=== PATIENT | female | born 1945 | race Caucasian/White ===

== ENCOUNTER 2017-04-01 21:05 | Emergency (ER) | payer OTHER ==
[2017-04-01 21:43] VITALS: TEMP 98.4; BMI 21.5
--- NOTE | 2017-04-01 22:01 | PDOC ---
History of Present Illness - General History Source: Patient Exam Limitations: No Limitations - History of Present Illness Initial Comments: 04/01/17 22:25 The patient is a 72 year old female with unclear significant PMH who presents to the emergency department with RLQ abdominal pain beginning approximately this morning. The patient describes the abdominal pain as radiating superiorly with associated nausea. She notes that her abdominal pain is aggravated by walking, to the point where she feels pain upon placing her feet on the ground after rising out of bed. The patient also complains of recent anorexia. The patient denies chest pain, shortness of breath, headache and dizziness. Denies fever, chills, vomit, diarrhea and constipation. Denies dysuria, frequency, urgency and hematuria. Allergies: NKDA Social history: No reported toxic habits. PCP: Dr. Rose <Blake Abdullahi - Last Filed: 04/01/17 22:26> - General History Source: Patient <Man Figueroa - Last Filed: 04/02/17 02:48> - General Chief Complaint: Pain Stated Complaint: PAIN Time Seen by Provider: 04/01/17 21:53 Past History <Blake Abdullahi - Last Filed: 04/01/17 22:26> - Past Medical History Anemia: No Asthma: No Cancer: No Cardiac Disorders: No CVA: No COPD: No CHF: No Dementia: No Diabetes: No GI Disorders: Yes (GERD) Disorders: No HTN: Yes Hypercholesterolemia: Yes (STOPPED MEDICATION 03/16/16) Liver Disease: No Seizures: No Thyroid Disease: No - Surgical History Abdominal Surgery: No Appendectomy: No Cardiac Surgery: No Cholecystectomy: No Lung Surgery: No Neurologic Surgery: No Orthopedic Surgery: No - Suicide/Smoking/Psychosocial Hx Smoking History: Never smoked Hx Alcohol Use: No Drug/Substance Use Hx: No Substance Use Type: None Hx Substance Use Treatment: No <Man Figueroa - Last Filed: 04/02/17 02:48> - Past Medical History Allergies/Adverse Reactions: Allergies Allergy/AdvReac Type Severity Reaction Status Date / Time No Known Drug Allergies Allergy Verified 04/21/16 08:18 Home Medications: Ambulatory Orders Lisinopril 10 mg PO DAILY 04/16/16 Levofloxacin [Levaquin -] 500 mg PO DAILY #7 tablet 04/02/17 Metronidazole [Flagyl] 500 mg PO BID #14 tablet 04/02/17 Ondansetron [Zofran *Odt*] 4 mg SL TID #30 od.tablet 04/02/17 Review of Systems - Review of Systems Able to Perform ROS?: Yes Comments:: 04/01/17 22:25 CONSTITUTIONAL: Absent: fever, chills, diaphoresis, generalized weakness, malaise, loss of appetite HEENT: Absent: rhinorrhea, nasal congestion, throat pain, throat swelling, difficulty swallowing, mouth swelling, ear pain, eye pain, visual Changes CARDIOVASCULAR: Absent: chest pain, syncope, palpitations, irregular heart rate, lightheadedness , peripheral edema RESPIRATORY: Absent: cough, shortness of breath, dyspnea with exertion, orthopnea, wheezing, stridor, hemoptysis GASTROINTESTINAL: (+) RLQ abdominal pain. (+) Nausea. (+) Anorexia. Absent: abdominal pain, abdominal distension, vomiting, diarrhea, constipation, melena, hematochezia GENITOURINARY: Absent: dysuria, frequency, urgency, hesitancy, hematuria, flank pain, genital pain MUSCULOSKELETAL: Absent: myalgia, arthralgia, joint swelling SKIN: Absent: rash, itching, pallor HEMATOLOGIC/IMMUNOLOGIC: Absent: easy bleeding, easy bruising, lymphadenopathy, frequent infections ENDOCRINE: Absent: unexplained weight gain, unexplained weight loss, heat intolerance, cold intolerance NEUROLOGIC: Absent: headache, focal weakness or paresthesias, dizziness, unsteady gait, seizure, mental status changes, bladder or bowel incontinence PSYCHIATRIC: Absent: anxiety, depression, suicidal or homicidal ideation, hallucinations. <Blake Abdullahi - Last Filed: 04/01/17 22:26> *Physical Exam - Vital Signs Last Vital Signs Temp Pulse Resp BP Pulse Ox 98.4 F 72 17 155/78 100 04/01/17 21:22 04/01/17 21:22 04/01/17 21:22 04/01/17 21:22 04/01/17 21:22 - Physical Exam Comments: 04/01/17 22:25 GENERAL: Well developed, well nourished. Awake and alert. No acute distress. HEENT: Normocephalic, atraumatic. PERRLA, EOMI. No conjunctival pallor. Sclera are non- icteric. Moist mucous membranes. Oropharynx is clear. NECK: Supple. Full ROM. No JVD. Carotid pulses 2+ and symmetric, without bruits. No thyromegaly. No lymphadenopathy. CARDIOVASCULAR: Regular rate and rhythm. No murmurs, rubs, or gallops. Distal pulses are 2+ and symmetric. PULMONARY: No evidence of respiratory distress. Lungs clear to auscultation bilaterally. No wheezing, rales or rhonchi. ABDOMINAL: (+) Localized RLQ tenderness. (+) Rebound. Soft. Non-distended. No guarding. No organomegaly. Normoactive bowel sounds. MUSCULOSKELETAL Normal range of motion at all joints. No bony deformities or tenderness. No CVA tenderness. EXTREMITIES: No cyanosis. No clubbing. No edema. No calf tenderness. SKIN: Warm and dry. Normal capillary refill. No rashes. No jaundice. NEUROLOGICAL: Alert, awake, appropriate. Cranial nerves 2-12 intact. No deficits to light touch and temperature in face, upper extremities and lower extremities. No motor deficits in the in face, upper extremities and lower extremities. Normoreflexic in the upper and lower extremities. Normal speech. Toes are downgoing bilaterally. Gait is normal without ataxia. PSYCHIATRIC: Cooperative. Good eye contact. Appropriate mood and affect. <Blake Abdullahi - Last Filed: 04/01/17 22:26> - Vital Signs Last Vital Signs Temp Pulse Resp BP Pulse Ox 98.4 F 72 17 155/78 100 04/01/17 21:22 04/01/17 21:22 04/01/17 21:22 04/01/17 21:22 04/01/17 21:22 <Man Figueroa - Last Filed: 04/02/17 02:48> ED Treatment Course - LABORATORY CBC & Chemistry Diagram: 04/01/17 22:38 04/01/17 22:38 <Man Figueroa - Last Filed: 04/02/17 02:48> Medical Decision Making - Medical Decision Making 04/02/17 02:47 Dr. Figueroa: The scribe's documentation has been prepared under my direction and personally reviewed by me in its entirery. I confirm that the note above accurately reflects all work, treatment, procedures, and medical decision making performed by me. pt feeling better. Pt found to have terminal ielitis as apposed to Appy. Will discharge. Rx Flaygl Levaquin sent to [facility] <Man Figueroa - Last Filed: 04/02/17 02:48> *DC/Admit/Observation/Transfer - Attestations Scribe Attestion: 04/01/17 22:26 Documentation prepared by Blake Abdullahi, acting as medical record administrator for Man Figueroa DO. <Blake Abdullahi - Last Filed: 04/01/17 22:26> - Discharge Dispostion Admit: No <Man Figueroa - Last Filed: 04/02/17 02:48> Diagnosis at time of Disposition: Ileitis, terminal Qualifiers: Digestive disease complication type: unspecified complication Qualified Code(s) : K50.019 - Crohn's disease of small intestine with unspecified complications; K50.019 - Crohn's disease of small intestine with unspecified complications; K50.019 - Crohn's disease of small intestine with unspecified complications; K50.019 - Crohn's disease of small intestine with unspecified complications - Discharge Dispostion Disposition: HOME Condition at time of disposition: Stable - Prescriptions Prescriptions: Metronidazole [Flagyl] 500 mg PO BID #14 tablet Levofloxacin [Levaquin -] 500 mg PO DAILY #7 tablet Ondansetron [Zofran *Odt*] 4 mg SL TID #30 od.tablet - Referrals Referrals: Eusebio Rose MD [Primary Care Provider] - Kiet Gilbert MD [Staff Physician] - - Patient Instructions Printed Discharge Instructions: DI for Colitis Additional Instructions: take medication as directed...Avoid alcohol when taking Flagyl. Follow up with your GI doctor. return if any problems.
[2017-04-01] MEDS ORDERED: SODIUM CHLORIDE 1,000 ML IV STA (22:02)
[2017-04-01] MEDS ORDERED: ONDANSETRON 4 MG/2 ML VIAL IVPUSH STA (22:02)
[2017-04-01] MEDS ORDERED: morphine CARPU-JECT 2 MG/1 ML DISP.SYRIN IVPUSH ONE (22:02)
[2017-04-01] MEDS ORDERED: ONDANSETRON 4 MG/2 ML VIAL ONE (22:21)
[2017-04-01] MEDS ORDERED: morphine CARPU-JECT 8 MG/1 ML DISP.SYRIN ONE (22:21)
[2017-04-01 22:38] LABS: URINE APPEARANCE TURBID; URINE BILIRUBIN NEGATIVE (NEGATIVE); URINE BLOOD NEGATIVE (NEGATIVE); URINE COLOR YELLOW; URINE GLUCOSE (UA) NEGATIVE (NEGATIVE); URINE KETONE TRACE (NEGATIVE); URINE NITRITE NEGATIVE (NEGATIVE); URINE UROBILINOGEN NEGATIVE mg/dL (0.2-1.0)
[2017-04-01 22:42] LABS: URINE PROTEIN 1+ (NEGATIVE)
[2017-04-01 22:59] LABS: BASOPHIL 0.4 % (0-2.0); EOSINOPHIL 0.1 % (0-4.5); MCH 28.9 pg (25.7-33.7); MCHC 33.9 g/dl (32.0-36.0); MEAN CELL VOLUME 85.3 fl (80-96); MEAN PLT VOLUME 8.1 fl (7.5-11.1); NEUTROPHILS 83.7 % (42.8-82.8); PLATELET COUNT 223 K/MM3 (134-434); RDW 15.5 % (11.6-15.6); WHITE BLOOD COUNT 10.6 K/mm3 (4.0-10.0)
[2017-04-01 23:11] LABS: INR 0.96 (0.82-1.09); PROTHROMBIN TIME (PATIENT) 10.9 SEC (9.98-11.88)
[2017-04-01 23:16] LABS: URINE MUCUS RARE; URINE RBC 4 /hpf (0-3)
[2017-04-02] MEDS ORDERED: metroNIDAZOLE 250 MG TABLET PO ONE (02:43)
[2017-04-02] MEDS ORDERED: LEVOFLOXACIN 500 MG TABLET (FP) PO ONE (02:43)
[2017-04-02] MEDS ORDERED: metroNIDAZOLE 250 MG TABLET ONE (03:52)
[2017-04-02] MEDS ORDERED: LEVOFLOXACIN 500 MG TABLET (FP) ONE (03:52)
[2017-04-02] MEDS ORDERED: ONDANSETRON *ODT* 4 MG TABLET SL ONE (04:24)
[2017-04-02] MEDS ORDERED: ONDANSETRON *ODT* 4 MG TABLET ONE (04:28)
[2017-04-02 05:12] VITALS: BP 118/89; PULSE 62
--- NOTE | 2017-04-02 09:43 | PDOC ---
Patient Follow-up (Call Back) - Post ED Follow - Up Condition at time of discharge: Stable Disposition at time of original discharge: HOME Reason for Call Back: Radiology (Receive phone call from radiologist that reviewed the CAT scan that showed a small bowel ejection the right lower quadrant. Patient was discharged home with antibiotics. I called patient at home and stated she is feeling worse and is vomiting. Patient recommended to come to the ER. Also spoke with and reviewed results we will bring patient to the emergency room.)
[2017-04-02 10:58] LABS: URINE LEUK ESTERASE Negative (NEGATIVE)
== END 2017-04-02 05:43 | disposition home or self-care (01) ==
LOC: JER 21:05
PROC: 3E033NZ Introduction of Analgesics, Hypnotics, Sedatives into Peripheral Vein, Percutaneous Approach (ICD-10-PCS; principal; 2017-04-01)
PROC: 3E033GC Introduction of Other Therapeutic Substance into Peripheral Vein, Percutaneous Approach (ICD-10-PCS; 2017-04-01)
PROC: 3E0337Z Introduction of Electrolytic and Water Balance Substance into Peripheral Vein, Percutaneous Approach (ICD-10-PCS; 2017-04-01)
DX: K50.019 Crohn's disease of small intestine with unspecified complications (principal); K21.9 Gastro-esophageal reflux disease without esophagitis; I10 Essential (primary) hypertension; E78.00 Pure hypercholesterolemia, unspecified
CPT/HCPCS: 36415; 74176-TC; 81003; 81015; 85025; 85610; 86850; 86900; 86901; 87040; 87086; 99283-25

== ENCOUNTER 2017-04-02 10:50 | Inpatient (IN) | payer OTHER ==
[2017-04-02 11:16] VITALS: BMI 16.9
--- NOTE | 2017-04-02 11:30 | PDOC ---
History of Present Illness - History of Present Illness Initial Comments: 04/02/17 11:43 The patient is a 72 year old female, with a significant past medical history of HTN, HLD who presents to the emergency department sent in for abnormal CT. Patient was seen last night for evaluation of abdominal pain. PAtient was called back for addendum report for SBO. Patient has since developed multiple episodes of vomiting, nausea and dizziness. Patients LBM was 4 days ago with belching however denied any flatus. Patient reports diffuse abdominal pain with no relief of her symptoms. She denies chest pain, headache or dizziness. She denies fever, chills, abdominal pain, nausea, vomit, diarrhea or constipation. She denies dysuria, frequency, urgency or hematuria. Patient denies sick contacts or recent travel. Allergies: NKA Past surgical history: Tubal ligation, Ovarian cyst removal Social history: None PCP: Dr. Toro GI: Ofelia <Shelly Mcallister - Last Filed: 04/02/17 11:44> <Holly Milan - Last Filed: 04/02/17 12:18> - General Chief Complaint: Pain Stated Complaint: ABD PAIN Time Seen by Provider: 04/02/17 11:09 Past History <Shelly Mcallister - Last Filed: 04/02/17 11:44> - Past Medical History Anemia: No Asthma: No Cancer: No Cardiac Disorders: No CVA: No COPD: No CHF: No Dementia: No Diabetes: No GI Disorders: Yes Disorders: No HTN: Yes Hypercholesterolemia: Yes Liver Disease: No Seizures: No Thyroid Disease: No - Surgical History Abdominal Surgery: No Appendectomy: No Cardiac Surgery: No Cholecystectomy: No Lung Surgery: No Neurologic Surgery: No Orthopedic Surgery: No - Suicide/Smoking/Psychosocial Hx Smoking History: Unknown if ever smoked Information on smoking cessation initiated: No Hx Alcohol Use: No Drug/Substance Use Hx: No Substance Use Type: None Hx Substance Use Treatment: No <Holly Milan - Last Filed: 04/02/17 12:18> - Past Medical History Allergies/Adverse Reactions: Allergies Allergy/AdvReac Type Severity Reaction Status Date / Time No Known Drug Allergies Allergy Verified 04/02/17 11:16 Home Medications: Ambulatory Orders Lisinopril 10 mg PO DAILY 04/16/16 Levofloxacin [Levaquin -] 500 mg PO DAILY #7 tablet 04/02/17 Metronidazole [Flagyl] 500 mg PO BID #14 tablet 04/02/17 Omeprazole 20 mg PO DAILY 04/02/17 Rosuvastatin [Crestor -] 0 mg PO HS 04/02/17 Review of Systems - Review of Systems Comments:: 04/02/17 11:43 GENERAL/CONSTITUTIONAL: No fever or chills. No weakness. HEAD, EYES, EARS, NOSE AND THROAT: No change in vision. No ear pain or discharge. No sore throat. CARDIOVASCULAR: No chest pain or shortness of breath. RESPIRATORY: No cough, wheezing, or hemoptysis. GASTROINTESTINAL: + abdominal pain, nausea, vomiting. No diarrhea or constipation. GENITOURINARY: No dysuria, frequency, or change in urination. MUSCULOSKELETAL: No joint or muscle swelling or pain. No neck or back pain. SKIN: No rash NEUROLOGIC: No headache, vertigo, loss of consciousness, or change in strength/ sensation. ENDOCRINE: No increased thirst. No abnormal weight change. HEMATOLOGIC/LYMPHATIC: No anemia, easy bleeding, or history of blood clots. ALLERGIC/IMMUNOLOGIC: No hives or skin allergy. <Shelly Mcallister - Last Filed: 04/02/17 11:44> *Physical Exam - Vital Signs Last Vital Signs Temp Pulse Resp BP Pulse Ox 98.2 F 76 18 147/82 97 04/02/17 11:14 04/02/17 11:14 04/02/17 11:14 04/02/17 11:14 04/02/17 11:14 - Physical Exam Comments: 04/02/17 11:43 GENERAL: Awake, alert, and fully oriented, in no acute distress HEAD: No signs of trauma EYES: PERRLA, EOMI, sclera anicteric, conjunctiva clear ENT: Auricles normal inspection, hearing grossly normal, nares patent, oropharynx clear without exudates. Moist mucosa NECK: Normal ROM, supple, no lymphadenopathy, JVD, or masses LUNGS: Breath sounds equal, clear to auscultation bilaterally. No wheezes, and no crackles HEART: Regular rate and rhythm, normal S1 and S2, no murmurs, rubs or gallops ABDOMEN: +Diffusely tender abdomen. + mildly distended. Soft, nontender, normoactive bowel sounds. No guarding, no rebound. No masses EXTREMITIES: Normal range of motion, no edema. No clubbing or cyanosis. No cords, erythema, or tenderness NEUROLOGICAL: Cranial nerves II through XII grossly intact. Normal speech, normal gait SKIN: Warm, Dry, normal turgor, no rashes or lesions noted. <Shelly Mcallister - Last Filed: 04/02/17 11:44> - Vital Signs Last Vital Signs Temp Pulse Resp BP Pulse Ox 98.2 F 76 18 147/82 97 04/02/17 11:14 04/02/17 11:14 04/02/17 11:14 04/02/17 11:14 04/02/17 11:14 <Holly Milan - Last Filed: 04/02/17 12:18> Medical Decision Making - Medical Decision Making 04/02/17 11:26-- Discussed case with Radiologist regarding addendum report 04/02/17 11:30-- Discussed case with Dr. Sofia in the ED. Kimberlyn accepts case 04/02/17 11:40-- Microblogged Hospitalist, patient's case discussed. 04/02/17 11:44-- Dr. Gilbert paged via phone answering service, Awaiting call back. <Shelly Mcallister - Last Filed: 04/02/17 11:44> - Critical Care Time Total Critical Care Time (minutes): 30 Critical Care Statement: The care of this patient involved high complexity decision making to prevent further life threatening deterioration of the patient 's condition and/or to evaluate & treat vital organ system(s) failure or risk of failure. - Medical Decision Making 04/02/17 11:28 a/p: 72yo female with n/v -called back this AM after radiology addended CT abd/pelvis that showed SBO with transition point in RLQ, terminal ileitis -pt with persistent n/v -will discuss with Hospitalist (gerry admits to [facility]), GI - Dr. Kimberlyn Gilbert (surgery disposition clerk) -npo -NGT -ivf hydration -reassess 04/02/17 11:[address] Sofia who will see the patient in consult. 04/02/17 11:52 case discussed with IM, accepts pt to service. NGT shows coffee ground emesis -protonix ordered -lactate ordered -surgery at the bedside -awaiting call back from GI. 04/02/17 12:[address] Gilbert who is aware of the patient. will continue to follow. <Holly Milan - Last Filed: 04/02/17 12:18> *DC/Admit/Observation/Transfer - Attestations Scribe Attestion: 04/02/17 11:43 Documentation prepared by Shelly Mcallister, acting as auditor medical claims for Holly Milan MD <Shelly Mcallister - Last Filed: 04/02/17 11:44> - Discharge Dispostion Admit: Yes - Attestations Physician Attestion: 04/02/17 11:50 I, Dr. Holly Milan, DO, attest that this document has been prepared under my direction and personally reviewed by me in its entirety. I further attest, that it accurately reflects all work, treatment, procedures and medical decision -making performed by me. <Holly Milan - Last Filed: 04/02/17 12:18> Diagnosis at time of Disposition: Ileitis, terminal, Small bowel obstruction - Discharge Dispostion Condition at time of disposition: Guarded
[2017-04-02] MEDS ORDERED: SODIUM CHLORIDE 0.9% 1000 ML INFUS.BAG IV ONE (11:31)
[2017-04-02] MEDS ORDERED: FAMOTIDINE 20 MG/50 ML IVPB 50 ML IVPB ONE ×2 (11:31→12:01)
[2017-04-02] MEDS ORDERED: ONDANSETRON 4 MG/2 ML VIAL IVPUSH ONE (11:31)
[2017-04-02] MEDS ORDERED: PANTOPRAZOLE SODIUM 40 MG VIAL IVPUSH ONE (11:49)
[2017-04-02] MEDS ORDERED: ONDANSETRON 4 MG/2 ML VIAL ONE (12:00)
[2017-04-02] MEDS ORDERED: morphine SULFATE 4 MG/ML VIAL ONE (12:00)
[2017-04-02] MEDS ORDERED: PANTOPRAZOLE SODIUM 40 MG VIAL ONE (12:01)
--- NOTE | 2017-04-02 12:11 | CONSULT ---
- Consultation REQUESTING PROVIDER: Kayli ROBIN CONSULT REQUEST: We have been asked to surgically evaluate this patient for nausea; vomiting; abdominal pain. PCP: HISTORY OF PRESENT ILLNESS: CONCHIS who is a 72 y/o female who is being w/ u for a 20lb. unexplained weight loss over the past 2 months; she was scheduled to have an MRI of her pancreas today/tomorrow which was cancelled b/o her acute illness; she presented to the ER w/nausea and vomiting and abdominal pain; she was txed and released here from the ER w/in the past 24 hours and called back b/ o findings on a CT scan official read c/w SBO; she has not been passing flatus recently nor had a BM; she had recent nl EGD and colonoscopy previously which was unremarkable; she denies any other Gi//[employer] c/o. PMHx: thyroid disease; hypertension; hyperlipidemia PSHx: BTL; ovarian cystectomy Home Medications Medication Instructions Recorded Lisinopril 10 mg PO DAILY 04/16/16 Levofloxacin [Levaquin -] 500 mg PO DAILY #7 tablet 04/02/17 Metronidazole [Flagyl] 500 mg PO BID #14 tablet 04/02/17 Omeprazole 20 mg PO DAILY 04/02/17 Rosuvastatin [Crestor -] 0 mg PO HS 04/02/17 Allergies Allergy/AdvReac Type Severity Reaction Status Date / Time No Known Drug Allergies Allergy Verified 04/02/17 11:16 PHYSICAL EXAM: GENERAL: Awake, alert, and fully oriented, in no acute distress. HEAD: Normal with no signs of trauma. EYES: sclera anicteric, conjunctiva clear. NECK: Normal ROM, supple without lymphadenopathy, JVD, or masses. ABDOMEN: Soft, slightly tender to palpation over uper abdomen, not distended, sluggish bowel sounds, no guarding, no rebound, no masses. No organomegaly. No hernias. MUSCULOSKELETAL: Normal ROM at all joints. No bony deformities or tenderness. No CVA tenderness. UPPER EXTREMITIES: 2+ pulses, warm, well-perfused. No cyanosis. Cap refill <2 seconds. No peripheral edema. LOWER EXTREMITIES: 2+ pulses, warm, well-perfused. No calf tenderness. No peripheral edema. NEUROLOGICAL: Normal speech, gait not observed. PSYCH: Cooperative. Good eye contact. Appropriate mood and affect. SKIN: Warm, dry, normal turgor, no rashes or lesions noted. Vital Signs Temperature 98.2 F 04/02/17 11:14 Pulse Rate 76 04/02/17 11:14 Respiratory Rate 18 04/02/17 11:14 Blood Pressure 147/82 04/02/17 11:14 O2 Sat by Pulse Oximetry (%) 97 04/02/17 11:14 labs; CT a/p reviewed. IMP: SBO PLAN: NPO/IVF/NGT/labs; serial exams; may require surgery if not resolved w/ conservative tx.; in addition after insertion of NGT noted to have coffee ground drainage; will have evaluation by GI who has followed her in the outpatient setting; d/w patient and family in depth in [place] and [place]. Dre Sofia MD FACS Visit type - Case Type Case Type: ED Admission - Emergency Emergency Visit: Yes Care time: The patient presented to the Emergency Department on the above date and was hospitalized for further evaluation of their emergent condition. - New patient This patient is new to me today: Yes Date on this admission: 04/02/17 - Critical Care Critical Care patient: No
[2017-04-02] MEDS: morphine CARPU-JECT 2 MG/1 ML DISP.SYRIN IVPUSH ONE (12:15)
[2017-04-02 12:25] LABS: BASO % 0.1 % (0-2.0); HEMATOCRIT 44.8 % (32.4-45.2); MCH 28.2 pg (25.7-33.7); MCHC 33.5 g/dl (32.0-36.0); MEAN CELL VOLUME 84.2 fl (80-96); MEAN PLT VOLUME 7.7 fl (7.5-11.1); MONO % 3.8 % (3.8-10.2); NEUT % 92.1 % (42.8-82.8); PLATELET COUNT 283 K/MM3 (134-434); RBC 5.32 M/mm3 (3.60-5.2); RDW 15.2 % (11.6-15.6)
[2017-04-02 12:51] LABS: MAGNESIUM 2.3 mg/dL (1.8-2.4)
[2017-04-02 12:52] LABS: ALBUMIN 4.1 g/dl (3.4-5.0); ANION GAP 13 (8-16); BLOOD UREA NITROGEN 16 mg/dL (7-18); CALCIUM 9.7 mg/dL (8.5-10.1); CHLORIDE 96 mmol/L (98-107); CO2 26 mmol/L (21-32); CREATININE 0.7 mg/dL (0.55-1.02); GLUCOSE,RANDOM 164 mg/dL (74-106); LIPASE 96 U/L (73-393); POTASSIUM 3.8 mmol/L (3.5-5.1); SGOT/AST 49 U/L (15-37); SGPT/ALT 58 U/L (12-78); SODIUM 135 mmol/L (136-145)
[2017-04-02 12:54] LABS: ALK PHOS 102 U/L (45-117); BILIRUBIN,TOTAL 0.9 mg/dL (0.2-1.0); TOT PROT 8.5 g/dl (6.4-8.2)
[2017-04-02] MEDS ORDERED: ACETAMINOPHEN 325 MG TABLET (FP) PO PRN (13:48)
[2017-04-02] MEDS ORDERED: DEXTROSE 5%-NORMAL SALINE 1,000 ML IV SCH (14:00)
[2017-04-02] MEDS ORDERED: ONDANSETRON 4 MG/2 ML VIAL IVPUSH PRN (14:00)
--- NOTE | 2017-04-02 14:10 | HP ---
CHIEF COMPLAINT: Abdominal pain and vomiting PCP: HISTORY OF PRESENT ILLNESS: 72yo Haitian-speaking F with history of HLD and HTN who presented to the ED last night with abdominal pain for 4 days with associated vomiting x1 day. Pt was called back today when official read of CT showed some distal small bowel dilation with transition point and terminal ileum and appendiceal thickening. Pt 's daughter who is translating states pt has had weight loss over the past few months without an explanation. She states she's been have dull abdominal discomfort for months now and has been following with Dr. Gilbert for work-up. They report that Dr. Gilbert performed a colonoscopy 2 years ago that didn't reveal anything significant and was supposed to be schedule for an MRI this Thursday. Pt's last BM was 4 days ago which was formed without any blood noted. Pt confirms some nausea and vomiting ER course was notable for: (1) NGT placement with resulting dark "coffee ground drainage" (2) Previous CT showing transition point of RUQ with distal small bowel dilation ; terminal ileum and appendix thickening (3) Morphine 2mg IVP once (4) 1L NS (5) Protonix 40mg IVP once and Pepcid 20mg once (6) NPO status maintained Recent Travel: Denies PAST MEDICAL HISTORY: HTN HLD PAST SURGICAL HISTORY: Tubal ligation ('very long ago') Ovarian cyst removal (>5 years ago) Colonoscopy (2 yrs ago) Social History: Smoking: None Alcohol: None Drugs: None Family History: --Mother - Renal failure, HTN Allergies No Known Drug Allergies Allergy (Verified 04/02/17 11:16) HOME MEDICATIONS: Home Medications Medication Instructions Recorded Lisinopril 10 mg PO DAILY 04/16/16 Rosuvastatin [Crestor -] 40 mg PO HS 04/02/17 REVIEW OF SYSTEMS CONSTITUTIONAL: Present: Weight loss, loss of appetite Absent: fever, chills, diaphoresis, generalized weakness, malaise HEENT: Absent: rhinorrhea, nasal congestion, throat pain, throat swelling, difficulty swallowing, mouth swelling, ear pain, eye pain, visual changes CARDIOVASCULAR: Absent: chest pain, syncope, palpitations, irregular heart rate, lightheadedness , peripheral edema RESPIRATORY: Absent: cough, shortness of breath, dyspnea with exertion, orthopnea, wheezing, stridor, hemoptysis GASTROINTESTINAL: Present: Abd pain, constipation, vomiting, nausea Absent: abdominal distension, diarrhea, melena, hematochezia GENITOURINARY: Absent: dysuria, frequency, urgency, hesitancy, hematuria, flank pain, genital pain MUSCULOSKELETAL: Absent: myalgia, arthralgia, joint swelling, back pain, neck pain SKIN: Absent: rash, itching, pallor HEMATOLOGIC/IMMUNOLOGIC: Absent: easy bleeding, easy bruising, lymphadenopathy, frequent infections ENDOCRINE: Absent: unexplained weight gain, heat intolerance, cold intolerance NEUROLOGIC: Absent: headache, focal weakness or paresthesias, dizziness, unsteady gait, seizure, mental status changes, bladder or bowel incontinence PSYCHIATRIC: Absent: anxiety, depression, suicidal or homicidal ideation, hallucinations. PHYSICAL EXAMINATION Vital Signs - 24 hr 04/02/17 12:17 O2 Sat by Pulse 98 Oximetry (%) GENERAL: Awake, alert, and fully oriented, in no acute distress. HEENT: EOMI, MARISABEL, no JVD noted, full range of motion, NGT in place draining dark-brown to black. LUNGS: CTA bilaterally. No wheezes, rhonchi, or rales HEART: RRR, normal S1 and S2 without murmur, rub or gallop. ABDOMEN: Soft, nontender, non-distended, hypoactive bowel sounds; no high- pitching tinkling appreciated, no guarding, no rebound, no masses UPPER EXTREMITIES: 2+ pulses, warm. No cyanosis. No peripheral edema. LOWER EXTREMITIES: 2+ pulses, warm. No peripheral edema. NEUROLOGICAL: Alert and oriented x3. Nonfocal SKIN: No rashes or lesions noted Laboratory Results - last 24 hr 04/02/17 04/02/17 04/02/17 11:52 11:52 11:52 PTT (Actin FS) 28.8 Sodium 135 L Potassium 3.8 Chloride 96 L Carbon Dioxide 26 Anion Gap 13 BUN 16 Creatinine 0.7 Creat Clearance w eGFR > 60 Random Glucose 164 H D Lactic Acid Calcium 9.7 Magnesium Total Bilirubin 0.9 AST 49 H ALT 58 Alkaline Phosphatase 102 Total Protein 8.5 H Albumin 4.1 Lipase 96 Blood Type O POSITIVE Antibody Screen Negative 04/02/17 04/02/17 11:52 11:52 PTT (Actin FS) Sodium Potassium Chloride Carbon Dioxide Anion Gap BUN Creatinine Creat Clearance w eGFR Random Glucose Lactic Acid 1.5 Calcium Magnesium 2.3 Total Bilirubin AST ALT Alkaline Phosphatase Total Protein Albumin Lipase 90 Blood Type Antibody Screen ASSESSMENT/PLAN: 72yo F history of HTN and HLD who is seen today for abdominal pain that increased in severity 4 days ago. No BM x4 days. Associated vomiting w/o blood x1 day. CT showing dilated small bowel and transition point in RUQ alongside thickened terminal ileum and appendix. NGT in place 1) SBO --Partial vs complete --Worry that etiology could be neoplasm in setting of drastic weight loss, loss of appetite, and GI work-up ongoing --No recent surgeries, no history of Ca in family, no hernia's on PE --? appendicitis with thickening seen on CT --NGT in place draining dark brown to black --NPO status --Tylenol 650mg for pain control; avoid narcotics of any type --Zofran 4mg PRN nausea (Qtc normal) --Dr. Sofia consulted: continue medical management for now --Dr. Gilbert consulted: originally working up for abdominal discomfort; colonoscopy 2 years ago; pt had MRI scheduled Thursday --Will follow-up to assess reason for MRI 2) HTN --Pt on lisinopril 5mg at home --Will hold for now due to NPO status --Monitor BP FEN: Fluids: D5NS @100cc/hr Electrolyte abnormalities: None currently, monitor K due to hx of vomiting Nutrition: STRICT NPO PPX DVT - SCDs applied both legs GI - Protonix 40mg qDaily Dispo: Admit to med-surg Case discussed with Dr. Lucero Naqvi, DO - Internal Medicine PGY-1 Visit type - Emergency Visit Emergency Visit: Yes ED Registration Date: 04/02/17 Care time: The patient presented to the Emergency Department on the above date and was hospitalized for further evaluation of their emergent condition. - New Patient This patient is new to me today: Yes Date on this admission: 04/02/17 - Critical Care Critical Care patient: No
[2017-04-02 15:39] LABS: URINE APPEARANCE CLEAR; URINE BILIRUBIN NEGATIVE (NEGATIVE); URINE BLOOD 1+ (NEGATIVE); URINE COLOR YELLOW; URINE GLUCOSE (UA) NEGATIVE (NEGATIVE); URINE KETONE 1+ (NEGATIVE); URINE NITRITE NEGATIVE (NEGATIVE); URINE UROBILINOGEN NEGATIVE mg/dL (0.2-1.0)
[2017-04-02 16:35] LABS: URINE PROTEIN 2+ (NEGATIVE)
[2017-04-02 16:42] LABS: URINE MUCUS RARE; URINE RBC 4 /hpf (0-3); URINE WBC 2 /hpf (3-5)
--- NOTE | 2017-04-02 16:59 | EKG ---
Test Reason : Blood Pressure : / mmHG Vent. Rate : 074 BPM Atrial Rate : 074 BPM P-R Int : 126 ms QRS Dur : 062 ms QT Int : 412 ms P-R-T Axes : 061 014 007 degrees QTc Int : 457 ms NORMAL SINUS RHYTHM NONSPECIFIC T WAVE ABNORMALITY ABNORMAL ECG WHEN COMPARED WITH ECG OF 11-SEP-2016 08:21, NON-SPECIFIC CHANGE IN ST SEGMENT IN INFERIOR LEADS NONSPECIFIC T WAVE ABNORMALITY NOW EVIDENT IN INFERIOR LEADS NONSPECIFIC T WAVE ABNORMALITY, WORSE IN ANTEROLATERAL LEADS Confirmed by TYLER LOVELACE MD ([id number]) on 04/02/2017 4:59:17 PM Referred By: Confirmed By:TYLER LOVELACE MD
--- NOTE | 2017-04-02 17:39 | PN ---
Teaching Attending Note Name of Resident: Mitchell Naqvi ATTENDING PHYSICIAN STATEMENT I saw and evaluated the patient. I reviewed the resident's note and discussed the case with the resident. I agree with the resident's findings and plan as documented. SUBJECTIVE: OBJECTIVE: Vital Signs Period Temp Pulse Resp BP Sys/Patterson Pulse Ox Last 24 Hr 98.2 F 76-79 18-18 131-147/70-82 97-99 Home Medications Medication Instructions Recorded Lisinopril 10 mg PO DAILY 04/16/16 Omeprazole 20 mg PO DAILY 04/02/17 Rosuvastatin [Crestor -] 40 mg PO HS 04/02/17 Laboratory Tests 04/02/17 04/02/17 04/02/17 11:12 11:52 11:52 WBC 13.0 H RBC 5.32 H Hgb 15.0 D Hct 44.8 MCV 84.2 MCH 28.2 MCHC 33.5 RDW 15.2 Plt Count 283 D MPV 7.7 Neutrophils % 92.1 H Lymphocytes % 4.0 L D Monocytes % 3.8 Eosinophils % 0.0 D Basophils % 0.1 PTT (Actin FS) Sodium 135 L Potassium 3.8 Chloride 96 L Carbon Dioxide 26 Anion Gap 13 BUN 16 Creatinine 0.7 Creat Clearance w eGFR > 60 Random Glucose 164 H D Lactic Acid Calcium 9.7 Magnesium Total Bilirubin 0.9 AST 49 H ALT 58 Alkaline Phosphatase 102 Total Protein 8.5 H Albumin 4.1 Lipase 96 Urine Color Urine Appearance Urine pH Ur Specific [place] Urine Protein Urine Glucose (UA) Urine Ketones Urine Blood Urine Nitrite Urine Bilirubin Urine Urobilinogen Urine RBC Urine WBC Urine Mucus Blood Type O POSITIVE Antibody Screen Negative 04/02/17 04/02/17 04/02/17 11:52 11:52 11:52 WBC RBC Hgb Hct MCV MCH MCHC RDW Plt Count MPV Neutrophils % Lymphocytes % Monocytes % Eosinophils % Basophils % PTT (Actin FS) 28.8 Sodium Potassium Chloride Carbon Dioxide Anion Gap BUN Creatinine Creat Clearance w eGFR Random Glucose Lactic Acid 1.5 Calcium Magnesium 2.3 Total Bilirubin AST ALT Alkaline Phosphatase Total Protein Albumin Lipase 90 Urine Color Urine Appearance Urine pH Ur Specific [place] Urine Protein Urine Glucose (UA) Urine Ketones Urine Blood Urine Nitrite Urine Bilirubin Urine Urobilinogen Urine RBC Urine WBC Urine Mucus Blood Type Antibody Screen 04/02/17 15:30 WBC RBC Hgb Hct MCV MCH MCHC RDW Plt Count MPV Neutrophils % Lymphocytes % Monocytes % Eosinophils % Basophils % PTT (Actin FS) Sodium Potassium Chloride Carbon Dioxide Anion Gap BUN Creatinine Creat Clearance w eGFR Random Glucose Lactic Acid Calcium Magnesium Total Bilirubin AST ALT Alkaline Phosphatase Total Protein Albumin Lipase Urine Color Yellow Urine Appearance Clear Urine pH 6.0 D Ur Specific [place] 1.020 Urine Protein 2+ H Urine Glucose (UA) Negative Urine Ketones 1+ H Urine Blood 1+ H Urine Nitrite Negative Urine Bilirubin Negative Urine Urobilinogen Negative Urine RBC 4 Urine WBC 2 Urine Mucus Rare Blood Type Antibody Screen ASSESSMENT AND PLAN:
[2017-04-02 18:26] LABS: URINE LEUK ESTERASE Negative (NEGATIVE)
--- NOTE | 2017-04-02 18:59 | CON.GI ---
Consult Consult Specialty:: GI Reason for Consultation:: SBO - History of Present Illness Chief Complaint: abdominal pain History of Present Illness: 72 F with h/o HLD and HTN seen recently in my office for evaluation of abdominal pain. At the time the pain was not severe and there was no rebound. She told me she had colonoscopy at [facility] a year ago and her relative retrieved that report which was negative. I had scheduled her for MRI to better evaluate but she came to ER with escalating pain and had a CT that demonstrated a SBO with a transition point in the terminal ileum, with thickened appendix and TI. Her last BM was 4 days ago. NGT placed with immediate drainage of 4-500 cc of dark bilious/coffeeground material. She is decompressed and much more comfortable. - History Source History Provided By: Patient, Family Member, Medical Record Limitations to Obtaining History: No Limitations - Alcohol/Substance Use Hx Alcohol Use: No - Smoking History Smoking history: Unknown if ever smoked Home Medications - Allergies Allergies/Adverse Reactions: Allergies Allergy/AdvReac Type Severity Reaction Status Date / Time No Known Drug Allergies Allergy Verified 04/02/17 11:16 - Home Medications Home Medications: Ambulatory Orders Lisinopril 10 mg PO DAILY 04/16/16 Omeprazole 20 mg PO DAILY 04/02/17 Rosuvastatin [Crestor -] 40 mg PO HS 04/02/17 Physical Exam-GI Vital Signs: Vital Signs Temperature 98 F 04/02/17 18:12 Pulse Rate 86 04/02/17 18:12 Respiratory Rate 18 04/02/17 18:12 Blood Pressure 126/68 04/02/17 18:12 O2 Sat by Pulse Oximetry (%) 99 04/02/17 18:12 Constitutional: Yes: Thin HENT: Yes: Normocephalic Cardiovascular: Yes: Regular Rate and Rhythm Respiratory: Yes: CTA Bilaterally Gastrointestinal Inspection: Yes: WNL ...Auscultate: Yes: Hypoactive Bowel Sounds ...Palpate: Yes: Soft, Tenderness (RLQ) ...Percussion: Yes: Tympanitic Labs: CBC, BMP Hepatic Panel Total Bilirubin 0.9 mg/dL (0.2-1.0) 04/02/17 11:52 AST 49 U/L (15-37) H 04/02/17 11:52 ALT 58 U/L (12-78) 04/02/17 11:52 Alkaline Phosphatase 102 U/L (45-117) 04/02/17 11:52 Albumin 4.1 g/dl (3.4-5.0) 04/02/17 11:52 CBC, BMP 04/02/17 11:12 04/02/17 11:52 Imaging - Results Cat Scan: Report Reviewed (as above. SBO) Assessment/Plan 72 F known to myself with SBO Agree with conservative mgmt Unclear etiology-no surgery for >30 years. ? appendicitis Lactic acid 1.5 Cont NGT to suction Surgery on case IVF
[2017-04-03] MEDS ORDERED: morphine SULFATE 4 MG/ML VIAL IVPUSH ONE ×2 (01:46→06:24)
[2017-04-03] MEDS ORDERED: morphine CARPU-JECT 4 MG/1 ML DISP.SYRIN IVPUSH ONE (02:00)
[2017-04-03] MEDS ORDERED: morphine CARPU-JECT 2 MG/1 ML DISP.SYRIN IVPUSH ONE (02:00)
[2017-04-03] MEDS ORDERED: morphine CARPU-JECT 2 MG/1 ML DISP.SYRIN ONE (06:41)
[2017-04-03] MEDS: morphine CARPU-JECT 2 MG/1 ML DISP.SYRIN IVPUSH ONE (06:46)
[2017-04-03 07:06] LABS: HEMATOCRIT 39.4 % (32.4-45.2); HEMOGLOBIN 13.2 GM/dL (10.7-15.3); MCH 28.1 pg (25.7-33.7); MCHC 33.4 g/dl (32.0-36.0); PLATELET COUNT 252 K/MM3 (134-434); RBC 4.69 M/mm3 (3.60-5.2); RDW 14.9 % (11.6-15.6)
[2017-04-03 07:27] LABS: INR 0.98 (0.82-1.09); PROTHROMBIN TIME (PATIENT) 11.1 SEC (9.98-11.88)
[2017-04-03 07:30] LABS: ACTIVATED PTT 27.1 SECONDS (26.9-34.4)
[2017-04-03 07:34] LABS: ANION GAP 13 (8-16); BLOOD UREA NITROGEN 18 mg/dL (7-18); CALCIUM 8.7 mg/dL (8.5-10.1); CHLORIDE 104 mmol/L (98-107); CO2 24 mmol/L (21-32); CREATININE 0.7 mg/dL (0.55-1.02); GLUCOSE,RANDOM 144 mg/dL (74-106); MAGNESIUM 2.1 mg/dL (1.8-2.4); POTASSIUM 3.6 mmol/L (3.5-5.1); SODIUM 141 mmol/L (136-145)
--- NOTE | 2017-04-03 07:57 | PN ---
Physical Exam: SUBJECTIVE: Pt complaining of severe abdominal pain currently. Giving Morphine 2mg IVP once now; last dose at 0200. Night team ordered CT ABD; results show no change compared to previous. Pt's only complaint is pain. OBJECTIVE: Vital Signs Period Temp Pulse Resp BP Sys/Patterson Pulse Ox Last 24 Hr 98 F-99.8 F 79-88 18-20 119-170/68-94 97-99 GENERAL: Mod distress, Alert, Awake HEENT: No JVD, EOMI, MARISABEL, NGT in place draining feculent material LUNGS: CTA bilaterally, no wheezes, no crackles, no accessory muscle use. HEART: Tachycardic normal rhythm, S1, S2 without murmur, rub or gallop. ABDOMEN: Soft, diffusely tender, nondistended, hypoactive bowel sounds, voluntary guarding, no rebound, no hepatosplenomegaly, no masses. EXTREMITIES: No edema. SKIN: Warm, dry, no rashes or lesions noted Laboratory Results - last 24 hr 04/02/17 04/02/17 04/02/17 11:52 11:52 11:52 WBC RBC Hgb Hct MCV MCH MCHC RDW Plt Count MPV PT with INR INR PTT (Actin FS) 28.8 Sodium 135 L Potassium 3.8 Chloride 96 L Carbon Dioxide 26 Anion Gap 13 BUN 16 Creatinine 0.7 Creat Clearance w eGFR > 60 Random Glucose 164 H D Lactic Acid Calcium 9.7 Magnesium Total Bilirubin 0.9 AST 49 H ALT 58 Alkaline Phosphatase 102 Total Protein 8.5 H Albumin 4.1 Lipase 96 Urine Color Urine Appearance Urine pH Ur Specific [place] Urine Protein Urine Glucose (UA) Urine Ketones Urine Blood Urine Nitrite Urine Bilirubin Urine Urobilinogen Ur Leukocyte Esterase Urine RBC Urine WBC Urine Mucus Blood Type O POSITIVE Antibody Screen Negative 04/02/17 04/02/17 04/02/17 11:52 11:52 15:30 WBC RBC Hgb Hct MCV MCH MCHC RDW Plt Count MPV PT with INR INR PTT (Actin FS) Sodium Potassium Chloride Carbon Dioxide Anion Gap BUN Creatinine Creat Clearance w eGFR Random Glucose Lactic Acid 1.5 Calcium Magnesium 2.3 Total Bilirubin AST ALT Alkaline Phosphatase Total Protein Albumin Lipase 90 Urine Color Yellow Urine Appearance Clear Urine pH 6.0 D Ur Specific [place] 1.020 Urine Protein 2+ H Urine Glucose (UA) Negative Urine Ketones 1+ H Urine Blood 1+ H Urine Nitrite Negative Urine Bilirubin Negative Urine Urobilinogen Negative Ur Leukocyte Esterase Negative Urine RBC 4 Urine WBC 2 Urine Mucus Rare Blood Type Antibody Screen 04/03/17 04/03/17 04/03/17 05:19 05:19 05:19 WBC 11.0 H RBC 4.69 Hgb 13.2 D Hct 39.4 MCV 84.0 MCH 28.1 MCHC 33.4 RDW 14.9 Plt Count 252 MPV 8.0 PT with INR 11.10 INR 0.98 PTT (Actin FS) 27.1 Sodium 141 Potassium 3.6 Chloride 104 Carbon Dioxide 24 Anion Gap 13 BUN 18 Creatinine 0.7 Creat Clearance w eGFR Random Glucose 144 H Lactic Acid Calcium 8.7 Magnesium 2.1 Total Bilirubin AST ALT Alkaline Phosphatase Total Protein Albumin Lipase Urine Color Urine Appearance Urine pH Ur Specific [place] Urine Protein Urine Glucose (UA) Urine Ketones Urine Blood Urine Nitrite Urine Bilirubin Urine Urobilinogen Ur Leukocyte Esterase Urine RBC Urine WBC Urine Mucus Blood Type Antibody Screen Active Medications Generic Name Dose Route Start Last Admin Trade Name Christiana PRN Reason Stop Dose Admin Acetaminophen 650 mg 04/02/17 13:48 Tylenol - PO Q4H PRN FEVER OR PAIN Dextrose/Sodium Chloride 1,000 mls @ 100 mls/hr 04/02/17 14:00 04/02/17 14:50 D5-Ns - IV 100 mls/hr ASDIR RAYMOND Administration Morphine Sulfate 2 mg 04/03/17 06:45 Morphine Injection - IVPUSH Q6H PRN Ondansetron HCl 4 mg 04/02/17 14:00 Zofran Injection IVPUSH Q6H PRN NAUSEA AND/OR VOMITING Pantoprazole Sodium 40 mg 04/03/17 10:00 Protonix Iv IVPUSH DAILY [facility] ASSESSMENT/PLAN: 72yo F history of HTN and HLD who is seen today for abdominal pain that increased in severity 4 days ago. No BM x4 days. Associated vomiting w/o blood x1 day. CT showing dilated small bowel and transition point in RUQ alongside thickened terminal ileum and appendix. NGT in place 1) SBO --Partial vs complete --Worry that etiology could be neoplasm in setting of drastic weight loss, loss of appetite --CEA, CA19-9 pending --NGT in place draining feculent material --NPO status --Morphine 2mg q6H PRN for pain control --Zofran 4mg PRN nausea (Qtc normal) --Dr. Sofia consulted: continue medical management for now --Dr. Gilbert consulted --Will follow-up 2) HTN --Pt on lisinopril 5mg at home --Will hold for now due to NPO status --Monitor BP --Labetolol 10mg IVP PRN for BP control if hypertension occurs FEN: Fluids: D5NS + Kcl @125 briefly for repletion then back to D5NS @100 Electrolyte abnormalities: None currently, monitor K due to hx of vomiting Nutrition: STRICT NPO PPX DVT - Heparin 5000U SQ TID / SCDs applied both legs Dispo: Med-surg Case discussed with Dr. Joanne Naqvi, DO - Internal Medicine PGY-1 Visit type - Emergency Visit Emergency Visit: No - New Patient This patient is new to me today: No - Critical Care Critical Care patient: No
[2017-04-03] MEDS: PANTOPRAZOLE SODIUM 40 MG VIAL IVPUSH SCH (10:12)
[2017-04-03] MEDS ORDERED: KCL 10 MEQ IVPB 100 ML IVPB SCH (10:30)
[2017-04-03] MEDS ORDERED: SODIUM CHLORIDE 0.9%/KCL 1,000 ML IV SCH (10:45)
--- NOTE | 2017-04-03 10:53 | PN ---
Progress Note (short form) - Note Progress Note: Attending Surgeon No c/o; no flatus; no BM VSS AF abdo-soft; not distended; slight tympany; o/w negative FUAXR today-contrast in colon c/w partial sbo lytes OK IMP: partial SBO PLAN: Continue ngt/npo/serial exams and x rays; Dre Sofia MD FACS
[2017-04-03] MEDS ORDERED: POTASSIUM CHLORIDE 30 MEQ in SODIUM CHLORIDE 250 ML IVPB ONE (11:30)
[2017-04-03] MEDS: HEPARIN NA (PORCINE) 5,000 UNITS/ML 1ML VIAL SQ SCH ×2 (13:41→21:38)
[2017-04-03] MEDS: morphine CARPU-JECT 2 MG/1 ML DISP.SYRIN IVPUSH PRN ×2 (15:35→22:14)
--- NOTE | 2017-04-03 16:06 | PN ---
Teaching Attending Note Name of Resident: Mitchell Naqvi ATTENDING PHYSICIAN STATEMENT I saw and evaluated the patient. I reviewed the resident's note and discussed the case with the resident. I agree with the resident's findings and plan as documented. SUBJECTIVE: no fever or chills. Abd pain , has no SOB or CP OBJECTIVE: NAD , AAOx3 CV: RRR Lungs : CTAB Abd: Soft, ND , TTP in all quadrants. hypoactive BS Ext: no edema Breast exam: no masses or skin changes . no LAP in axilla A/P: 72 y/o lady with h/o HTN , HLP and weight loss who presented with abd pain and was found to have SBO 1- SBO : with transition point in ilium - cont NGT - cont morphine PRN for pain . - NPO - cause of SBP is not clear . CT did not show any masses . had no sx in past. cxray with no masses, and breast exam with no masses . last mammo 2 yrs ago and colo 3 yrs ago 2- Weight loss: - cancer w/u as above . - tumor markers are pending - check TSH 3- HTN: - hold lisinopril as NPO . if needed can give IV meds 4- DVT PX heparin SQ
[2017-04-03] MEDS ORDERED: LABETALOL HCL 5 MG/1 ML (100MG/20 ML VIAL) IVPUSH ONE (16:54)
[2017-04-03] MEDS ORDERED: LABETALOL HCL 5 MG/1 ML (100MG/20 ML VIAL) IVPUSH PRN (16:54)
[2017-04-04] MEDS: morphine CARPU-JECT 2 MG/1 ML DISP.SYRIN IVPUSH PRN (05:38)
[2017-04-04] MEDS: HEPARIN NA (PORCINE) 5,000 UNITS/ML 1ML VIAL SQ SCH ×3 (06:47→22:01)
[2017-04-04 07:28] LABS: ALBUMIN 3.2 g/dl (3.4-5.0); ANION GAP 8 (8-16); BLOOD UREA NITROGEN 11 mg/dL (7-18); CHLORIDE 105 mmol/L (98-107); CO2 27 mmol/L (21-32); CREATININE 0.6 mg/dL (0.55-1.02); GLUCOSE,RANDOM 112 mg/dL (74-106); MAGNESIUM 1.7 mg/dL (1.8-2.4); POTASSIUM 3.9 mmol/L (3.5-5.1); SGOT/AST 27 U/L (15-37); SGPT/ALT 33 U/L (12-78); SODIUM 140 mmol/L (136-145)
[2017-04-04 07:30] LABS: ALK PHOS 64 U/L (45-117); BILIRUBIN,TOTAL 0.6 mg/dL (0.2-1.0); PHOSPHOROUS 2.7 mg/dL (2.5-4.9); TOT PROT 5.9 g/dl (6.4-8.2)
[2017-04-04 08:08] LABS: HEMATOCRIT 35.3 % (32.4-45.2); HEMOGLOBIN 11.8 GM/dL (10.7-15.3); MCH 28.5 pg (25.7-33.7); MCHC 33.6 g/dl (32.0-36.0); MEAN CELL VOLUME 85.1 fl (80-96); MEAN PLT VOLUME 8.1 fl (7.5-11.1); PLATELET COUNT 210 K/MM3 (134-434); RBC 4.14 M/mm3 (3.60-5.2); RDW 15.1 % (11.6-15.6); WHITE BLOOD COUNT 8.4 K/mm3 (4.0-10.0)
--- NOTE | 2017-04-04 08:23 | PN ---
Physical Exam: SUBJECTIVE: Pt seen with daughter at bedside. Pt resting comfortably in bed with NGT in place still draining feculent material. Pt reports better pain control. Denies flatus or BM. OBJECTIVE: Vital Signs Period Temp Pulse Resp BP Sys/Patterson Pulse Ox Last 24 Hr 98.0 F-99.2 F 71-94 14-18 127-180/72-90 97-100 GENERAL: NAD, Alert, Awake, resting in bed. HEENT: No JVD, EOMI, MARISABEL, NGT in place draining feculent material LUNGS: CTA bilaterally, no wheezes, no crackles, no accessory muscle use. HEART: RRR, S1, S2 without murmur. ABDOMEN: Soft, nontender (Morphine recently given before exam), nondistended, hypoactive bowel sounds. No masses EXTREMITIES: No edema. Pulses 2+ throughout SKIN: Warm, dry, no rashes or lesions noted. Laboratory Results - last 24 hr 04/02/17 04/03/17 04/03/17 21:05 05:19 08:00 Sodium Potassium Chloride Carbon Dioxide Anion Gap BUN Creatinine Creat Clearance w eGFR Random Glucose Hemoglobin A1c % 5.9 Calcium Phosphorus Magnesium Total Bilirubin AST ALT Alkaline Phosphatase Total Protein Albumin Carcinoembryonic Ag 2.0 CA 19-9 Antigen 8 CA 125 Antigen 25.8 TSH 04/03/17 04/04/17 21:40 05:10 Sodium 140 Potassium 3.9 Chloride 105 Carbon Dioxide 27 Anion Gap 8 BUN 11 D Creatinine 0.6 Creat Clearance w eGFR > 60 Random Glucose 112 H D Hemoglobin A1c % Calcium 8.0 L Phosphorus 2.7 Magnesium 1.7 L Total Bilirubin 0.6 D AST 27 D ALT 33 D Alkaline Phosphatase 64 D Total Protein 5.9 L D Albumin 3.2 L D Carcinoembryonic Ag CA 19-9 Antigen CA 125 Antigen TSH 2.15 Active Medications Generic Name Dose Route Start Last Admin Trade Name Freq PRN Reason Stop Dose Admin Acetaminophen 650 mg 04/02/17 13:48 Tylenol - PO Q4H PRN FEVER OR PAIN Heparin Sodium (Porcine) 5,000 unit 04/03/17 14:00 04/04/17 06:47 Heparin - SQ 5,000 unit TID RAYMOND Administration Potassium Chloride/Sodium Chloride 1,000 mls @ 125 mls/hr 04/03/17 10:45 10:55 Ns+20 Meq Kcl - IV 125 mls/hr ASDIR RAYMOND Administration Labetalol HCl 10 mg 04/03/17 16:54 Normodyne Injection - IVPUSH Q6H PRN hypertension Morphine Sulfate 2 mg 04/03/17 06:45 04/04/17 05:38 Morphine Injection - IVPUSH 2 mg Q6H PRN Administration Ondansetron HCl 4 mg 04/02/17 14:00 04/03/17 10:11 Zofran Injection IVPUSH 4 mg Q6H PRN Administration NAUSEA AND/OR VOMITING Pantoprazole Sodium 40 mg 04/03/17 10:00 04/03/17 10:12 Protonix Iv IVPUSH 40 mg DAILY RAYMOND Administration ASSESSMENT/PLAN: 72yo F history of HTN and HLD who is admitted for SBO. CT showing dilated small bowel and transition point in RUQ alongside thickened terminal ileum and appendix. NGT in place 1) SBO --Partial vs complete --CEA, CA19-9 WNL (25.8 and 8 respectively) --NGT in place draining feculent material; decreasing in drainage --NPO status --Morphine 2mg q6H PRN for pain control --Zofran 4mg PRN nausea (Qtc normal) --Dr. Sofia consulted --If no improvement medically may need to discuss possible laparotomy --Dr. Gilbert consulted 2) HTN --Pt on lisinopril 5mg at home --Will hold for now due to NPO status --Monitor BP --Labetolol 10mg IVP PRN for BP control if hypertension occurs 3) Weight loss --CEA and CA19-9 WNL --TSH WNL FEN: Fluids: NS @75cc/hr (limiting rate due to elevated BP) Electrolyte abnormalities: None currently Nutrition: STRICT NPO PPX DVT - Heparin 5000U SQ TID / SCDs applied both legs Dispo: Med-surg Case discussed with Dr. Joanne Naqvi, DO - Internal Medicine PGY-1 Visit type - Emergency Visit Emergency Visit: No - New Patient This patient is new to me today: No - Critical Care Critical Care patient: No
[2017-04-04] MEDS ORDERED: SODIUM CHLORIDE 1,000 ML IV SCH (09:45)
[2017-04-04] MEDS: PANTOPRAZOLE SODIUM 40 MG VIAL IVPUSH SCH (10:09)
--- NOTE | 2017-04-04 11:20 | PN ---
Progress Note (short form) - Note Progress Note: Attending Surgeon Seen in f/u; no flatus; no BM VSS AF abdomen-soft; flat; nt; slight tympany AXR-partial sbo; high grade IMP:partial high grade SBO PLAN: continue present tx.; may come to laparotomy. Dre Sofia MD FACS
[2017-04-04] MEDS: SODIUM CHLORIDE 1,000 ML IV SCH (11:27)
[2017-04-04] MEDS ORDERED: CALCIUM GLUCONATE 10% - 1,000 MG/10 ML VIAL IVPB ONE (13:15)
--- NOTE | 2017-04-04 13:50 | PN ---
Teaching Attending Note Name of Resident: Mitchell Naqvi ATTENDING PHYSICIAN STATEMENT I saw and evaluated the patient. I reviewed the resident's note and discussed the case with the resident. I agree with the resident's findings and plan as documented. SUBJECTIVE: Abd pain is controlled with IV pain meds, no BM or flatus . no fever or chills OBJECTIVE: NAD , AAOx3 CV: RRR Lungs: CTAB Abd: Soft, ND , TTP in all quadrants. hypoactive BS Ext: no edema A/P : 72 y/o lady with h/o HTN , HLP and weight loss who presented with abd pain and was found to have SBO 1- SBO : with transition point in ilieum - cont NGT - cont morphine PRN for pain . - NPO - replete electrolytes 2- Weight loss: - TSH nl - CEA and CA19-9 NL. last colo and mammo 2-3 years ago . - rest of w/u as out pt 3- HTN: - hold lisinopril as NPO. if needed can give IV meds. 4- DVT PX Heparin SQ
[2017-04-04] MEDS ORDERED: MAGNESIUM SULF 50% (8.12 MEQ/2 ML-1 GM VIAL) IVPB ONE (14:15)
[2017-04-05] MEDS: HEPARIN NA (PORCINE) 5,000 UNITS/ML 1ML VIAL SQ SCH ×3 (06:57→21:24)
[2017-04-05 08:09] LABS: CHLORIDE 103 mmol/L (98-107); POTASSIUM 3.5 mmol/L (3.5-5.1); SODIUM 139 mmol/L (136-145)
[2017-04-05 08:18] LABS: ANION GAP 13 (8-16); BLOOD UREA NITROGEN 18 mg/dL (7-18); CALCIUM 8.2 mg/dL (8.5-10.1); CO2 23 mmol/L (21-32); CREATININE 0.6 mg/dL (0.55-1.02); GLUCOSE,RANDOM 57 mg/dL (74-106)
[2017-04-05] MEDS: PANTOPRAZOLE SODIUM 40 MG VIAL IVPUSH SCH (10:05)
[2017-04-05] MEDS: SODIUM CHLORIDE 1,000 ML IV SCH (10:05)
--- NOTE | 2017-04-05 12:10 | PN ---
Progress Note (short form) - Note Progress Note: Attending Surgeon No c/o VSS AF abdomen-no change from previous AXR-no improvement; persistent SBO IMP: SBO PLAN: d/w patient and her need for surgery; they will consider this;as she does not have an acute abdomen will put on OR schedule for tomorrow; a/a/u by the patient and her . Dre Sofia MD FACS
--- NOTE | 2017-04-05 16:41 | PN ---
Progress Note (short form) - Note Progress Note: Subjective: no fever or chills . has no abd pain today . no N/V Objective: Vital Signs: Last Vital Signs Temp Pulse Resp BP Pulse Ox 99.6 F 87 20 144/75 100 04/05/17 14:00 04/05/17 14:00 04/05/17 14:00 04/05/17 14:00 04/05/17 09:00 Laboratory Results - last 24 hr 04/05/17 05:10 Sodium 139 Potassium 3.5 Chloride 103 Carbon Dioxide 23 Anion Gap 13 BUN 18 D Creatinine 0.6 Random Glucose 57 L D Calcium 8.2 L Physical Exam: NAD , AAOx3 CV: RRR, 3/6 SM at base best heard LUSB Lungs: CTAB Abd: Soft, ND , TTP in all quadrants. hypoactive BS Ext: no edema A/P : 72 y/o lady with h/o HTN , HLP and weight loss who presented with abd pain and was found to have SBO 1- SBO : with transition point in ilieum - cont NGT - cont morphine PRN for pain . - NPO - replete electrolytes if needed - might need Surgery. - Pre-OP risk stratification: this is an intermediate risk procedure. the pt has no signs of ACS , heart failure or arrhythmias. she has a murmur at heart base, and she has a good functional capacity probably 10 METS. I will order echo to r/o significant , and depending on echo results will risk stratify her . - d/w Dr. Sofia 2- Weight loss: - TSH nl - CEA and CA19-9 NL. last colo and mammo 2-3 years ago . - rest of w/u as out pt 3- HTN: - hold lisinopril as NPO. if needed can give IV meds. 4- DVT PX Visit type - Emergency Visit Emergency Visit: Yes ED Registration Date: 04/02/17 Care time: The patient presented to the Emergency Department on the above date and was hospitalized for further evaluation of their emergent condition. - New Patient This patient is new to me today: No - Critical Care Critical Care patient: No
--- NOTE | 2017-04-06 07:31 | PN ---
Physical Exam: SUBJECTIVE: Patient to OR today. No acute events overnight. No other complaints today. OBJECTIVE: Vital Signs Period Temp Pulse Resp BP Sys/Patterson Pulse Ox Last 24 Hr 98.0 F-99.6 F 75-95 18-20 140-147/74-83 98-100 GENERAL: NAD, Alert, Awake, resting in bed. HEENT: No JVD, EOMI, MARISABEL, NGT in place draining minimal feculent-looking liquid LUNGS: CTA bilaterally, no wheezes, no crackles, no accessory muscle use. HEART: RRR, S1, S2 present. 2/6 diastolic murmur heard at LLS border. ABDOMEN: Soft, hypoactive bowel sounds, tenderness noted RLQ, nondistended, no guarding or rebound. No masses EXTREMITIES: No edema. Pulses 2+ throughout SKIN: Warm, dry, no rashes or lesions noted. Laboratory Results - last 24 hr 04/05/17 05:10 Sodium 139 Potassium 3.5 Chloride 103 Carbon Dioxide 23 Anion Gap 13 BUN 18 D Creatinine 0.6 Random Glucose 57 L D Calcium 8.2 L Active Medications Generic Name Dose Route Start Last Admin Trade Name Freq PRN Reason Stop Dose Admin Acetaminophen 650 mg 04/02/17 13:48 Tylenol - PO Q4H PRN FEVER OR PAIN Heparin Sodium (Porcine) 5,000 unit 04/03/17 14:00 04/05/17 21:24 Heparin - SQ 5,000 unit TID RAYMOND Administration Sodium Chloride 1,000 mls @ 75 mls/hr 04/04/17 09:45 04/05/17 10:05 Normal Saline - IV 75 mls/hr ASDIR RAYMOND Administration Labetalol HCl 10 mg 04/03/17 16:54 Normodyne Injection - IVPUSH Q6H PRN hypertension Morphine Sulfate 2 mg 04/03/17 06:45 04/04/17 05:38 Morphine Injection - IVPUSH 2 mg Q6H PRN Administration Ondansetron HCl 4 mg 04/02/17 14:00 04/03/17 10:11 Zofran Injection IVPUSH 4 mg Q6H PRN Administration NAUSEA AND/OR VOMITING Pantoprazole Sodium 40 mg 04/03/17 10:00 04/05/17 10:05 Protonix Iv IVPUSH 40 mg DAILY RAYMOND Administration ASSESSMENT/PLAN: 72yo F history of HTN and HLD who is admitted for SBO. CT showing dilated small bowel and transition point in RUQ alongside thickened terminal ileum and appendix. NGT in place 1) SBO --Pt unchanged with medical management; will proceed to OR today --Low risk pt for an intermediate risk procedure --Will obtain Echocardiogram prior to procedure due to murmur --Heparin held until tonight due to surgery --CEA, CA19-9 WNL (25.8 and 8 respectively) --NGT continued --NPO status --Morphine 2mg q6H PRN for pain control --Will reassess post-op --Zofran 4mg PRN nausea (Qtc normal) --Dr. Sofia consulted 2) HTN --Pt on lisinopril 5mg at home --Held due to NPO status --Monitor BP --Labetolol 10mg IVP PRN for BP control if hypertension occurs 3) Weight loss --CEA and CA19-9 WNL --TSH WNL FEN: Fluids: NS @75cc/hr Electrolyte abnormalities: None currently Nutrition: STRICT NPO PPX DVT - Heparin held until tonight due to procedure / SCDs applied both legs Dispo: Med-surg Case discussed with Dr. Joanne Naqvi, DO - Internal Medicine PGY-1 Visit type - Emergency Visit Emergency Visit: No - New Patient This patient is new to me today: No - Critical Care Critical Care patient: No
[2017-04-06 07:55] LABS: MAGNESIUM 1.9 mg/dL (1.8-2.4); PHOSPHOROUS 2.9 mg/dL (2.5-4.9); POTASSIUM 3.1 mmol/L (3.5-5.1)
[2017-04-06] MEDS ORDERED: KCL 10 MEQ IVPB 100 ML IVPB SCH (08:30)
[2017-04-06] MEDS ORDERED: POTASSIUM CHLORIDE 30 MEQ in SODIUM CHLORIDE 300 ML IVPB ONE (08:30)
[2017-04-06] MEDS: SODIUM CHLORIDE 1,000 ML IV SCH ×2 (08:46→15:36)
[2017-04-06] MEDS: PANTOPRAZOLE SODIUM 40 MG VIAL IVPUSH SCH (09:28)
[2017-04-06] MEDS ORDERED: SUCCINYLCHOLINE CHLORIDE 200 MG/10 ML VIAL ONE (09:43)
[2017-04-06] MEDS ORDERED: ROCURONIUM BROMIDE 50 MG/5 ML VIAL ONE (09:43)
[2017-04-06] MEDS ORDERED: PROPOFOL 20 ML ONE ×3 (09:43)
[2017-04-06] MEDS ORDERED: MIDAZOLAM HCL 2 MG/2 ML SINGLE DOSE VIAL ONE ×2 (09:44)
[2017-04-06] MEDS ORDERED: DEXAMETHASONE SOD PHOSPHATE/PF 10 MG/ML SDV ONE (09:56)
[2017-04-06] MEDS ORDERED: ROPIVACAINE HCL 0.5% 30ML VIAL ONE (09:57)
[2017-04-06] MEDS ORDERED: LIDOCAINE HCL 2% JELLY (5 ML/TUBE) ONE (10:52)
[2017-04-06] MEDS ORDERED: METRONIDAZOLE 500 MG PREMIXED 100 ML IVPB ONE (10:55)
[2017-04-06] MEDS ORDERED: ceFAZolin SODIUM 1 GM VIAL IVPB ONE ×2 (11:05→11:06)
[2017-04-06] MEDS ORDERED: DEXAMETHASONE SOD PHOSPHATE 4 MG/1 ML VIAL ONE (11:09)
[2017-04-06] MEDS ORDERED: ceFAZolin SODIUM 1 GM VIAL ONE (11:09)
[2017-04-06] MEDS ORDERED: NEOSTIGMINE METHYLSULFATE 0.5 MG/ML - 10 ML MDV ONE (12:00)
[2017-04-06] MEDS ORDERED: GLYCOPYRROLATE 0.2 MG/1 ML VIAL ONE (12:01)
[2017-04-06] MEDS ORDERED: ESMOLOL HCL 10 ML ONE (12:07)
[2017-04-06] MEDS ORDERED: ACETAMINOPHEN 1000 MG/100 ML VIAL (NON FORMULARY) IVPB PRN (12:23)
--- NOTE | 2017-04-06 12:27 | OP ---
Operative Note - Note: Operative Date: 04/06/17 Pre-Operative Diagnosis: SBO Operation: Exploratory laparotomy with enterolysis Findings: Closed loop of small bowel (viable) Post-Operative Diagnosis: Same as Pre-op Surgeon: Dre Sofia Sand Blaster: Tom Aguila Anesthesiologist/AUTOMOTIVE TECHNICIAN: Frank Hughes Anesthesia: General Specimens Removed: None. Estimated Blood Loss (mls): 25 Drains, Volume Out (mls): 700 Fluid Volume Replaced (mls): 900 Operative Report Dictated: Yes
--- NOTE | 2017-04-06 12:28 | SURG ---
Surgery Product Support Rep Note Product Support Rep: Tom Aguila PA-C Date of Service: 04/06/17 Diagnosis: Small bowel obstruction secondary to closed loop Procedure: Exploratory lapartotomy w/ enterolysis. I was present for the entirety of the operative procedure. For further detail, please refer to operative report. Visit type - Case Type Case Type: ED Admission
[2017-04-06] MEDS ORDERED: ONDANSETRON 4 MG/2 ML VIAL IVPUSH PRN ×2 (12:31→19:00)
[2017-04-06] MEDS ORDERED: PROMETHAZINE HCL 25 MG/1 ML VIAL IVPUSH PRN (12:31)
[2017-04-06] MEDS ORDERED: morphine SULFATE 4 MG/ML VIAL IVPUSH PRN (12:59)
[2017-04-06] MEDS ORDERED: LABETALOL HCL 5 MG/1 ML (100MG/20 ML VIAL) IVPUSH PRN (12:59)
[2017-04-06] MEDS: HEPARIN NA (PORCINE) 5,000 UNITS/ML 1ML VIAL SQ SCH ×2 (15:35→22:20)
[2017-04-06] MEDS ORDERED: morphine CARPU-JECT 2 MG/1 ML DISP.SYRIN ONE (15:46)
--- NOTE | 2017-04-06 18:23 | PN ---
Teaching Attending Note Name of Resident: Mitchell Naqvi ATTENDING PHYSICIAN STATEMENT I saw and evaluated the patient. I reviewed the resident's note and discussed the case with the resident. I agree with the resident's findings and plan as documented. SUBJECTIVE: seen before laparotomy complained of improved abd pain, no N/V OBJECTIVE: NAD , AAOx3 CV: RRR, 3/6 SM at base best heard LUSB Lungs: CTAB Abd: Soft, ND , TTP in all quadrants. hypoactive BS Ext: no edema A/P : 72 y/o lady with h/o HTN , HLP and weight loss who presented with abd pain and was found to have SBO 1- SBO: s/p explaratory laparotomy with enterolysis . POD 0. - cont NG suction - cont pain control - NPO - replete electrolytes - await for flatus 2- Weight loss: - TSH nl - CEA and CA19-9 NL. last colo and mammo 2-3 years ago . - rest of w/u as out pt 3- HTN: - hold lisinopril as NPO. if needed can give IV meds for SBP > 170 4- DVT PX HLOC
[2017-04-06] MEDS: morphine CARPU-JECT 2 MG/1 ML DISP.SYRIN IVPUSH PRN (22:14)
[2017-04-07] MEDS: HEPARIN NA (PORCINE) 5,000 UNITS/ML 1ML VIAL SQ SCH ×3 (06:06→21:20)
[2017-04-07 07:20] LABS: HEMATOCRIT 35.6 % (32.4-45.2); MCH 28.4 pg (25.7-33.7); MCHC 33.8 g/dl (32.0-36.0); MEAN CELL VOLUME 84.2 fl (80-96); PLATELET COUNT 238 K/MM3 (134-434); RBC 4.22 M/mm3 (3.60-5.2); RDW 14.8 % (11.6-15.6); WHITE BLOOD COUNT 9.9 K/mm3 (4.0-10.0)
[2017-04-07 07:55] LABS: ANION GAP 16 (8-16); BLOOD UREA NITROGEN 13 mg/dL (7-18); CALCIUM 8.1 mg/dL (8.5-10.1); CHLORIDE 101 mmol/L (98-107); CO2 21 mmol/L (21-32); CREATININE 0.6 mg/dL (0.55-1.02); GLUCOSE,RANDOM 136 mg/dL (74-106); MAGNESIUM 1.8 mg/dL (1.8-2.4); POTASSIUM 3.8 mmol/L (3.5-5.1); SODIUM 138 mmol/L (136-145)
[2017-04-07] MEDS ORDERED: CALCIUM GLUCONATE 10% - 1,000 MG/10 ML VIAL IVPB ONE (08:26)
[2017-04-07] MEDS ORDERED: LABETALOL HCL 5 MG/1 ML (100MG/20 ML VIAL) IVPB PRN (08:26)
--- NOTE | 2017-04-07 08:38 | PN ---
Physical Exam: SUBJECTIVE: Pt is POD 0 to 1 today. Pt has no new complaints and curious about surgery and plan. Pt denies any flatus, BM, nausea/vomiting, abdominal pain currently. OBJECTIVE: Vital Signs Period Temp Pulse Resp BP Sys/Patterson Pulse Ox Last 24 Hr 97.9 F-99.3 F 70-90 16-20 134-176/72-94 96-99 GENERAL: NAD, Alert, Awake, resting in bed. HEENT: No JVD, EOMI, MARISABEL, NGT in place no fluid draining currently LUNGS: CTA bilaterally, no wheezes, no crackles, no accessory muscle use. HEART: RRR, S1, S2 present. 2/6 diastolic murmur heard at LLS border. ABDOMEN: Soft, hypoactive bowel sounds, bandage placed to midline from 2cm below umbilicus to 4.5cm above, site is C/D/I, nondistended EXTREMITIES: No edema. Pulses 2+ throughout SKIN: Warm, dry, no rashes or lesions noted. Laboratory Results - last 24 hr 04/06/17 04/07/17 04/07/17 10:00 05:10 05:10 WBC 9.9 RBC 4.22 Hgb 12.0 Hct 35.6 MCV 84.2 MCH 28.4 MCHC 33.8 RDW 14.8 Plt Count 238 MPV 8.0 Sodium 138 Potassium 3.8 D Chloride 101 Carbon Dioxide 21 Anion Gap 16 BUN 13 D Creatinine 0.6 Random Glucose 136 H D Calcium 8.1 L Phosphorus 3.0 Magnesium 1.8 Blood Type O POSITIVE Antibody Screen Negative Active Medications Generic Name Dose Route Start Last Admin Trade Name Freq PRN Reason Stop Dose Admin Heparin Sodium (Porcine) 5,000 unit 04/06/17 14:00 04/07/17 06:06 Heparin - SQ 5,000 unit TID RAYMOND Administration Sodium Chloride 1,000 mls @ 75 mls/hr 04/06/17 12:59 04/06/17 15:36 Normal Saline - IV Not Given ASDIR RAYMOND Labetalol HCl 10 mg 04/07/17 08:26 Normodyne Injection - IVPB Q6H PRN hypertension Morphine Sulfate 2 mg 04/06/17 22:08 04/06/17 22:14 Morphine Injection - IVPUSH 2 mg Q6H PRN Administration PAIN Ondansetron HCl 4 mg 04/06/17 19:00 Zofran Injection IVPUSH Q6H PRN NAUSEA AND/OR VOMITING Pantoprazole Sodium 40 mg 04/07/17 10:00 Protonix Iv IVPUSH DAILY RAYMOND ASSESSMENT/PLAN: 72yo F history of HTN and HLD who is admitted for SBO. CT showing dilated small bowel and transition point in RUQ alongside thickened terminal ileum and appendix. NGT in place 1) SBO --POD 0 to 1 today --Minimal blood loss during surgery --Found to have internal hernia of bowel; 2/2 tubal ligation procedure multiple years ago --Pt pain well controlled today --Continue NGT until flatus/bm --Pt being transferred to post-op med/surgical floor --CEA, CA19-9 WNL (25.8 and 8 respectively) --NPO status --Morphine 2mg q6H PRN for pain control --Zofran 4mg PRN nausea (Qtc normal) --Dr. Sofia following 2) HTN --Pt on lisinopril 5mg at home --Held due to NPO status --Monitor BP --Labetolol 10mg IVPB PRN for BP control if hypertension occurs 3) Weight loss --CEA and CA19-9 WNL --TSH WNL FEN: Fluids: NS @75cc/hr Electrolyte abnormalities: corrected hypocalcemia; 1gm Ca gluc IVPB for repletion Nutrition: NPO PPX DVT - Heparin 5000U SQ TID/ SCDs applied both legs Dispo: Med-surg Case to be discussed with Dr. Joanne Naqvi, DO - Internal Medicine PGY-1 Visit type - Emergency Visit Emergency Visit: No - New Patient This patient is new to me today: No - Critical Care Critical Care patient: No
--- NOTE | 2017-04-07 08:39 | PN ---
Progress Note (short form) - Note Progress Note: Post op day#1.S/P Exploratory lapratomy under GA with TAP block uneventful.Patient stable and c/o some pain for which she is on medication.No any anesthesia related problem.Patient DC from the anesthesia care.
[2017-04-07] MEDS ORDERED: morphine SULFATE 4 MG/ML VIAL IVPUSH PRN (09:37)
[2017-04-07] MEDS: morphine CARPU-JECT 2 MG/1 ML DISP.SYRIN IVPUSH PRN (09:45)
[2017-04-07] MEDS ORDERED: PANTOPRAZOLE SODIUM 40 MG VIAL IVPUSH SCH (10:00)
--- NOTE | 2017-04-07 11:12 | PN ---
Progress Note (short form) - Note Progress Note: Attending Surgeon POD #1 No c/o; states she feels much better VSS AF abdomen-soft; tympanitic; dressing c/d/i NGT 200 cc U.O.-good lytes ok IMP:doing well PLAN: OOB to chair; pulmonary toilet; continue NGT;FC to monitor i/o; await return of bowel function. Dre Sofia MD FACS
[2017-04-07] MEDS: SODIUM CHLORIDE 1,000 ML IV SCH ×2 (14:18→20:12)
[2017-04-07] MEDS ORDERED: METOPROLOL TARTRATE 5 MG/5 ML VIAL IVPB PRN ×2 (16:13→17:33)
--- NOTE | 2017-04-07 19:00 | PN ---
Teaching Attending Note Name of Resident: Mitchell Naqvi ATTENDING PHYSICIAN STATEMENT I saw and evaluated the patient. I reviewed the resident's note and discussed the case with the resident. I agree with the resident's findings and plan as documented. SUBJECTIVE: no fever or chills , no flatus , nausea OBJECTIVE: NAD , AAOx3 CV: RRR, 3/6 SM at base best heard LUSB Lungs: CTAB Abd: Soft, ND , TTP in all quadrants. hypoactive BS Ext: no edema A/P : 72 y/o lady with h/o HTN , HLP and weight loss who presented with abd pain and was found to have SBO 1- SBO: s/p explaratory laparotomy with enterolysis . POD 1. - cont NG suction - cont pain control - NPO - replete electrolytes - DC NG when bowel function returns 2- Weight loss: w/u neg so far. cont w.u as out pt 3- HTN: - hold lisinopril as NPO. if needed can give IV meds for SBP > 170 4- DVT PX HLOC
[2017-04-08] MEDS: HEPARIN NA (PORCINE) 5,000 UNITS/ML 1ML VIAL SQ SCH ×3 (07:31→21:16)
--- NOTE | 2017-04-08 07:58 | PN ---
Physical Exam: SUBJECTIVE: Pt denies passing flatus. Denies BM. Pain maintained with current pain regiment. Pt feels "rumbling" in her stomach. OBJECTIVE: Vital Signs Period Temp Pulse Resp BP Sys/Patterson Pulse Ox Last 24 Hr 98.5 F-100 F 78-103 16-20 142-162/67-87 97-100 GENERAL: NAD, Alert, Awake, resting in bed. HEENT: No JVD, EOMI, MARISABEL, NGT in place no fluid draining currently LUNGS: CTA bilaterally, no wheezes, no crackles, no accessory muscle use. HEART: RRR, S1, S2 present. 2/6 diastolic murmur heard at LLS border. ABDOMEN: Soft, hypoactive bowel sounds, bandage placed to midline from 2cm below umbilicus to 4.5cm above, site is C/D/I, nondistended EXTREMITIES: No edema. Pulses 2+ throughout SKIN: Warm, dry, no rashes or lesions noted. Laboratory Results - last 24 hr 04/07/17 05:10 Sodium 138 Potassium 3.8 D Chloride 101 Carbon Dioxide 21 Anion Gap 16 BUN 13 D Creatinine 0.6 Random Glucose 136 H D Calcium 8.1 L Phosphorus 3.0 Magnesium 1.8 Active Medications Generic Name Dose Route Start Last Admin Trade Name Freq PRN Reason Stop Dose Admin Heparin Sodium (Porcine) 5,000 unit 04/06/17 14:00 04/08/17 07:31 Heparin - SQ 5,000 unit TID RAYMOND Administration Sodium Chloride 1,000 mls @ 75 mls/hr 04/06/17 12:59 04/07/17 20:12 Normal Saline - IV 75 mls/hr ASDIR RAYMOND Administration Metoprolol Tartrate 5 mg 04/07/17 17:33 Lopressor Injection - IVPB Q4H PRN HYPERTENSION Morphine Sulfate 2 mg 04/07/17 09:37 04/07/17 21:20 Morphine Sulfate IVPUSH 2 mg Q6H PRN Administration PAIN Ondansetron HCl 4 mg 04/06/17 19:00 Zofran Injection IVPUSH Q6H PRN NAUSEA AND/OR VOMITING ASSESSMENT/PLAN: 72yo F history of HTN and HLD who is admitted for SBO. CT showing dilated small bowel and transition point in RUQ alongside thickened terminal ileum and appendix. NGT in place 1) SBO --POD 1 to 2 today --Minimal blood loss during surgery --Found to have internal hernia of bowel; 2/2 tubal ligation procedure multiple years ago --Pt pain well controlled today --Continue NGT until flatus/bm --Pt being transferred to post-op med/surgical floor --CEA, CA19-9 WNL (25.8 and 8 respectively) --NPO status --Morphine 2mg q6H PRN for pain control --Zofran 4mg PRN nausea (Qtc normal) --Dr. Sofia following 2) HTN --Pt on lisinopril 5mg at home --Held due to NPO status --Monitor BP --Lopressor 5mg IVPB q4 PRN for BP control if hypertension occurs; parameters in order 3) Weight loss --CEA and CA19-9 WNL --TSH WNL FEN: Fluids: NS @75cc/hr; possibility of changing to D5NS @ 75cc/hr due to NPO status Electrolyte abnormalities: None Nutrition: NPO PPX DVT - Heparin 5000U SQ TID/ SCDs applied both legs Dispo: Med-surg Case to be discussed with Dr. Harshal Naqvi, DO - Internal Medicine PGY-1 Visit type - Emergency Visit Emergency Visit: No - New Patient This patient is new to me today: No - Critical Care Critical Care patient: No
--- NOTE | 2017-04-08 08:28 | PN ---
Progress Note (short form) - Note Progress Note: Attending Surgeon POD #2 No c/o; no flatus; no BM; voiding VSS AF abdomen-soft; slightly distended and tympanitic; dressing c/d/i extremities-warm; no calf tenderness NGT-250 cc IMP: doing well PLAN: OOB; pulmonary toilet; continue NPO/IVF/NGT; check labs; await return of bowel function. Dre Sofia MD FACS
--- NOTE | 2017-04-08 08:43 | OP ---
DATE OF OPERATION: 04/06/2017 PREOPERATIVE DIAGNOSIS: Small-bowel obstruction. POSTOPERATIVE DIAGNOSIS: Small-bowel obstruction. PROCEDURE: Laparotomy and enterolysis (lysis of adhesions). SURGEON: Dre Flores MD DIRECTOR GLOBAL DEVELOPMENT: Tom Aguila PA-C ANESTHESIA: General. OPERATIVE FINDINGS: There was a closed-loop small-bowel obstruction involving the mid to terminal ileum. The basis of this obstruction was an internal hernia and adhesions from previous pelvic surgery. The bowel was viable, and the rest of the findings were unremarkable. DESCRIPTION OF PROCEDURE: The patient was placed on the operating table in supine position, and after the induction of general anesthesia, the patient's abdomen was prepped with ChloraPrep and draped in sterile fashion. The timeout was taken and then the peritoneal cavity entered through a lower midline incision from just above the umbilicus towards the symphysis pubis. The previously noted findings were observed, and using blunt and sharp dissection, the adherent bowel was dissected off the abdominal wall, and then interloop adhesions in the internal hernia were reduced and the bowel returned to its normal anatomic position. A small serosal tear was repaired with interrupted 3-0 silk Lembert sutures. Enteric contents were milked proximally towards the ligament of Treitz into the stomach. The entire small bowel was then run in an antegrade fashion from the ligament of Treitz to the IV without evidence of any other obstruction. Irrigation was carried out, hemostasis checked for and noted to be good, and then the abdomen was closed in a single layer using 0 loop Maxon suture. The subcutaneous tissue was irrigated and the skin edges reapproximated with surgical pedro. Dry sterile dressings were placed and the procedure terminated at this point and the patient aroused from general anesthesia and transferred to the postanesthesia care unit in stable condition awake and alert. ESTIMATED BLOOD LOSS: 2500 mL. REPLACEMENT: 900 mL crystalloid. DRAINS: None. SPECIMENS: None. I, Dre Sofia MD, was physically present in the operating room from the time the patient was placed on the operating table until she was transferred to the postanesthesia care unit in my accompaniment. MD HEIDI Gagnon/[id number] MTDD
[2017-04-08 08:44] LABS: ANION GAP 11 (8-16); BLOOD UREA NITROGEN 12 mg/dL (7-18); CALCIUM 7.8 mg/dL (8.5-10.1); CHLORIDE 99 mmol/L (98-107); CO2 29 mmol/L (21-32); CREATININE 0.4 mg/dL (0.55-1.02); GLUCOSE,RANDOM 90 mg/dL (74-106); MAGNESIUM 1.9 mg/dL (1.8-2.4); PHOSPHOROUS 2.3 mg/dL (2.5-4.9); SODIUM 139 mmol/L (136-145)
[2017-04-08] MEDS: morphine SULFATE 4 MG/ML VIAL IVPUSH PRN ×2 (12:13→20:05)
[2017-04-08] MEDS: DEXTROSE 5%-0.45% SALINE 980 ML with POTASSIUM CHLORIDE 40 MEQ IVPB SCH (12:33)
--- NOTE | 2017-04-08 19:24 | PN ---
Teaching Attending Note Name of Resident: Mitchell Naqvi ATTENDING PHYSICIAN STATEMENT I saw and evaluated the patient. I reviewed the resident's note and discussed the case with the resident. I agree with the resident's findings and plan as documented. SUBJECTIVE: Patient has no BM yet, No flatus yet. Otherwise comfortable. OBJECTIVE: Vital Signs Temperature 98.5 F 04/08/17 17:18 Pulse Rate 92 H 04/08/17 17:18 Respiratory Rate 20 04/08/17 17:18 Blood Pressure 136/78 04/08/17 17:18 O2 Sat by Pulse Oximetry (%) 97 04/07/17 21:00 CBCD WBC 9.9 K/mm3 (4.0-10.0) 04/07/17 05:10 RBC 4.22 M/mm3 (3.60-5.2) 04/07/17 05:10 Hgb 12.0 GM/dL (10.7-15.3) 04/07/17 05:10 Hct 35.6 % (32.4-45.2) 04/07/17 05:10 MCV 84.2 fl (80-96) 04/07/17 05:10 MCHC 33.8 g/dl (32.0-36.0) 04/07/17 05:10 RDW 14.8 % (11.6-15.6) 04/07/17 05:10 Plt Count 238 K/MM3 (134-434) 04/07/17 05:10 MPV 8.0 fl (7.5-11.1) 04/07/17 05:10 CMP Sodium 139 mmol/L (136-145) 04/08/17 06:35 Potassium 3.0 mmol/L (3.5-5.1) L D 04/08/17 06:35 Chloride 99 mmol/L (98-107) 04/08/17 06:35 Carbon Dioxide 29 mmol/L (21-32) D 04/08/17 06:35 Anion Gap 11 (8-16) 04/08/17 06:35 BUN 12 mg/dL (7-18) 04/08/17 06:35 Creatinine 0.4 mg/dL (0.55-1.02) L D 04/08/17 06:35 Creat Clearance w eGFR > 60 (>60) 04/04/17 05:10 Random Glucose 90 mg/dL (74-106) D 04/08/17 06:35 Calcium 7.8 mg/dL (8.5-10.1) L 04/08/17 06:35 Total Bilirubin 0.6 mg/dL (0.2-1.0) D 04/04/17 05:10 AST 27 U/L (15-37) D 04/04/17 05:10 ALT 33 U/L (12-78) D 04/04/17 05:10 Alkaline Phosphatase 64 U/L (45-117) D 04/04/17 05:10 Total Protein 5.9 g/dl (6.4-8.2) L D 04/04/17 05:10 Albumin 3.2 g/dl (3.4-5.0) L D 04/04/17 05:10 Current Medications Generic Name Dose Route Start Last Admin Trade Name Freq PRN Reason Stop Dose Admin Heparin Sodium (Porcine) 5,000 unit 04/06/17 14:00 04/08/17 16:47 Heparin - SQ 5,000 unit TID RAYMOND Administration Potassium Chloride 40 meq/ 1,000 mls @ 75 mls/hr 04/08/17 11:45 04/08/17 12: 33 Dextrose/Sodium Chloride IVPB 04/10/17 01:04 75 mls/hr ASDIR RAYMOND Administration Metoprolol Tartrate 5 mg 04/07/17 17:33 Lopressor Injection - IVPB Q4H PRN HYPERTENSION Morphine Sulfate 1 mg 04/08/17 11:50 04/08/17 12:13 Morphine Sulfate IVPUSH 1 mg Q6H PRN Administration PAIN Ondansetron HCl 4 mg 04/06/17 19:00 Zofran Injection IVPUSH Q6H PRN NAUSEA AND/OR VOMITING Home Medications Medication Instructions Recorded Lisinopril 10 mg PO DAILY 04/16/16 Omeprazole 20 mg PO DAILY 04/02/17 Rosuvastatin [Crestor -] 40 mg PO HS 04/02/17 Oxycodone HCl/Acetaminophen 1 tab PO Q6H PRN #20 tablet MDD 4 04/06/17 [Percocet 5-325 mg Tablet] PE: per resident's note ASSESSMENT AND PLAN: 72 y/o lady with h/o HTN , HLP and weight loss who presented with abd pain and was found to have SBO # pod #2 ; SBO: s/p explaratory laparotomy with enterolysis. # Acute Hypokalemia; IVF with 40meq of KCL x2 bags ordered, repeat labs in am # Weight loss: w/u neg so far. cont w.u as out pt # HTN: - hold lisinopril as NPO. if needed can give IV Lopressor for SBP > 160 DVT PX : Heparin sq
[2017-04-09] MEDS: HEPARIN NA (PORCINE) 5,000 UNITS/ML 1ML VIAL SQ SCH ×3 (06:50→21:22)
[2017-04-09] MEDS: morphine SULFATE 4 MG/ML VIAL IVPUSH PRN ×2 (07:06→23:45)
--- NOTE | 2017-04-09 10:01 | PN ---
Progress Note (short form) - Note Progress Note: Attending Surgeon POD # 3 VSS AF No flatus; no BM; has been OOB ambulating; she is voiding abdomen-soft; slightly tender at incision which is c/d/i; slight tympany extremities-warm and w/o calf tenderness AM labs pending K was low NGT 400 IMP: doing well PLAN Replete K w/ K phos; continue same; await reurn of bowel function. Dre Sofia MD FACS
[2017-04-09] MEDS ORDERED: PT OWN MED DRAWER 7, Y5N ONE (10:02)
[2017-04-09] MEDS ORDERED: WATER IVPB ONE (10:30)
[2017-04-09] MEDS ORDERED: DEXTROSE IVPB ONE (10:30)
[2017-04-09] MEDS ORDERED: POTASSIUM PHOSPHATE IVPB ONE (10:30)
[2017-04-09 10:34] LABS: ANION GAP 6 (8-16); BLOOD UREA NITROGEN 10 mg/dL (7-18); CALCIUM 7.9 mg/dL (8.5-10.1); CHLORIDE 99 mmol/L (98-107); CO2 33 mmol/L (21-32); CREATININE 0.4 mg/dL (0.55-1.02); GLUCOSE,RANDOM 126 mg/dL (74-106); POTASSIUM 3.2 mmol/L (3.5-5.1); SODIUM 138 mmol/L (136-145)
[2017-04-09] MEDS: D5-1/2NS+20 MEQ KCL - 20 MEQ/1,000 ML INFUS.BAG IV SCH (12:04)
[2017-04-09] MEDS: DEXTROSE 5%-0.45% SALINE 980 ML with POTASSIUM CHLORIDE 40 MEQ IVPB SCH (12:05)
--- NOTE | 2017-04-09 16:47 | PN ---
Physical Exam: SUBJECTIVE: Pt reports stomach rumbling but not really passing gas. Pt has no abdominal and reports her pain is still controlled with the decrease in her pain medication. Denies abd pain, fever/chills, SOB, cp/discomfort. OBJECTIVE: Vital Signs Period Temp Pulse Resp BP Sys/Patterson Pulse Ox Last 24 Hr 98.1 F-99.3 F 74-97 16-20 122-136/70-81 95-98 GENERAL: NAD, Alert, Awake, resting in bed. HEENT: No JVD, EOMI, MARISABEL, NGT in place, 200cc fluid accumulated since yesterday LUNGS: CTA bilaterally, no wheezes, no crackles, no accessory muscle use. HEART: RRR, S1, S2 present. 2/6 diastolic murmur heard at LLS border. ABDOMEN: Soft, nontender, hyperactive bowel sounds, bandage placed to midline with no blood let-thru, site is C/D/I, nondistended EXTREMITIES: No edema. Pulses 2+ throughout SKIN: Warm, dry, no rashes or lesions noted. Laboratory Results - last 24 hr 04/09/17 09:30 Sodium 138 Potassium 3.2 L Chloride 99 Carbon Dioxide 33 H Anion Gap 6 L BUN 10 Creatinine 0.4 L Random Glucose 126 H D Calcium 7.9 L Active Medications Generic Name Dose Route Start Last Admin Trade Name Freq PRN Reason Stop Dose Admin Heparin Sodium (Porcine) 5,000 unit 04/06/17 14:00 04/09/17 14:51 Heparin - SQ 5,000 unit TID RAYMOND Administration Potassium Chloride 40 meq/ 1,000 mls @ 75 mls/hr 04/08/17 11:45 04/09/17 12: 05 Dextrose/Sodium Chloride IVPB 04/10/17 01:04 Not Given ASDIR RAYMOND Potassium Chloride/Dextrose/Sod Cl 20 meq in 1,000 mls @ 83 mls/hr 04/09/17 11 :15 04/09/17 12:04 D5-1/2ns+20 Meq Kcl - IV 04/10/17 23:18 83 mls/hr ASDIR RAYMOND Administration Metoprolol Tartrate 5 mg 04/07/17 17:33 Lopressor Injection - IVPB Q4H PRN HYPERTENSION Morphine Sulfate 1 mg 04/08/17 11:50 04/09/17 07:06 Morphine Sulfate IVPUSH 1 mg Q6H PRN Administration PAIN Ondansetron HCl 4 mg 04/06/17 19:00 Zofran Injection IVPUSH Q6H PRN NAUSEA AND/OR VOMITING ASSESSMENT/PLAN: 72yo F history of HTN and HLD who is admitted for SBO. CT showing dilated small bowel and transition point in RUQ alongside thickened terminal ileum and appendix. NGT in place. POD 3 s/p exlap with internal hernia reduction. 1) SBO --POD 3 today --Found to have internal hernia of bowel; 2/2 tubal ligation procedure multiple years ago --Pt pain well controlled today --Pt reports slight flatus; however not convinced and feel like she is just saying so to remove her NGT --Will wait until tomorrow to remove --CEA, CA19-9 WNL (25.8 and 8 respectively) --NPO currently; upon flatus will advance to clears --Morphine 1mg q6H PRN for pain control --Zofran 4mg PRN nausea (Qtc normal) --Dr. Sofia following 2) HTN --Pt on lisinopril 5mg at home --Held due to NPO status --Monitor BP --Labetolol 5mg IVPB PRN for BP control if hypertension occurs 3) Weight loss --CEA and CA19-9 WNL --TSH WNL FEN: Fluids: D5-1/2NS+20mEq @75cc/hr Electrolyte abnormalities: hypokalemia; Kphos earlier today, 20mEq K added to D5-1/2NS Nutrition: NPO PPX DVT - Heparin 5000U SQ TID/ SCDs applied both legs Dispo: Med-surg Case to be discussed with Dr. Harshal Naqvi, DO - Internal Medicine PGY-1 Visit type - Emergency Visit Emergency Visit: No - New Patient This patient is new to me today: No - Critical Care Critical Care patient: No
--- NOTE | 2017-04-09 20:32 | PN ---
Teaching Attending Note Name of Resident: Mitchell Naqvi ATTENDING PHYSICIAN STATEMENT I saw and evaluated the patient. I reviewed the resident's note and discussed the case with the resident. I agree with the resident's findings and plan as documented. SUBJECTIVE: Patient stated that she is passing flatus allie, no BM yet. feels better. OBJECTIVE: Vital Signs Temperature 98.1 F 04/09/17 15:28 Pulse Rate 87 04/09/17 15:28 Respiratory Rate 18 04/09/17 15:28 Blood Pressure 133/76 04/09/17 15:28 O2 Sat by Pulse Oximetry (%) 98 04/09/17 10:10 CBCD WBC 9.9 K/mm3 (4.0-10.0) 04/07/17 05:10 RBC 4.22 M/mm3 (3.60-5.2) 04/07/17 05:10 Hgb 12.0 GM/dL (10.7-15.3) 04/07/17 05:10 Hct 35.6 % (32.4-45.2) 04/07/17 05:10 MCV 84.2 fl (80-96) 04/07/17 05:10 MCHC 33.8 g/dl (32.0-36.0) 04/07/17 05:10 RDW 14.8 % (11.6-15.6) 04/07/17 05:10 Plt Count 238 K/MM3 (134-434) 04/07/17 05:10 MPV 8.0 fl (7.5-11.1) 04/07/17 05:10 CMP Sodium 138 mmol/L (136-145) 04/09/17 09:30 Potassium 3.2 mmol/L (3.5-5.1) L 04/09/17 09:30 Chloride 99 mmol/L (98-107) 04/09/17 09:30 Carbon Dioxide 33 mmol/L (21-32) H 04/09/17 09:30 Anion Gap 6 (8-16) L 04/09/17 09:30 BUN 10 mg/dL (7-18) 04/09/17 09:30 Creatinine 0.4 mg/dL (0.55-1.02) L 04/09/17 09:30 Creat Clearance w eGFR > 60 (>60) 04/04/17 05:10 Random Glucose 126 mg/dL (74-106) H D 04/09/17 09:30 Calcium 7.9 mg/dL (8.5-10.1) L 04/09/17 09:30 Total Bilirubin 0.6 mg/dL (0.2-1.0) D 04/04/17 05:10 AST 27 U/L (15-37) D 04/04/17 05:10 ALT 33 U/L (12-78) D 04/04/17 05:10 Alkaline Phosphatase 64 U/L (45-117) D 04/04/17 05:10 Total Protein 5.9 g/dl (6.4-8.2) L D 04/04/17 05:10 Albumin 3.2 g/dl (3.4-5.0) L D 04/04/17 05:10 Current Medications Generic Name Dose Route Start Last Admin Trade Name Freq PRN Reason Stop Dose Admin Heparin Sodium (Porcine) 5,000 unit 04/06/17 14:00 04/09/17 14:51 Heparin - SQ 5,000 unit TID RAYMOND Administration Potassium Chloride 40 meq/ 1,000 mls @ 75 mls/hr 04/08/17 11:45 04/09/17 12: 05 Dextrose/Sodium Chloride IVPB 04/10/17 01:04 Not Given ASDIR RAYMOND Potassium Chloride/Dextrose/Sod Cl 20 meq in 1,000 mls @ 83 mls/hr 04/09/17 11 :15 04/09/17 12:04 D5-1/2ns+20 Meq Kcl - IV 04/10/17 23:18 83 mls/hr ASDIR RAYMOND Administration Metoprolol Tartrate 5 mg 04/07/17 17:33 Lopressor Injection - IVPB Q4H PRN HYPERTENSION Morphine Sulfate 1 mg 04/08/17 11:50 04/09/17 07:06 Morphine Sulfate IVPUSH 1 mg Q6H PRN Administration PAIN Ondansetron HCl 4 mg 04/06/17 19:00 Zofran Injection IVPUSH Q6H PRN NAUSEA AND/OR VOMITING Home Medications Medication Instructions Recorded Lisinopril 10 mg PO DAILY 04/16/16 Omeprazole 20 mg PO DAILY 04/02/17 Rosuvastatin [Crestor -] 40 mg PO HS 04/02/17 Oxycodone HCl/Acetaminophen 1 tab PO Q6H PRN #20 tablet MDD 4 04/06/17 [Percocet 5-325 mg Tablet] PE: abdomen: hypoactive BS rest of physical exam per Resident's note ASSESSMENT AND PLAN: 72 y/o lady with h/o HTN , HLP and weight loss who presented with abd pain and was found to have SBO # pod #3 ; SBO: s/p explaratory laparotomy with enterolysis. clear liquid for now # Acute Hypokalemia; IVF with 40meq of KCL x2 bags ordered, repeat labs in am. # HTN: hold lisinopril as NPO. On IV Lopressor for SBP > 160 DVT Px: Heparin Sq possible dc in am
[2017-04-10] MEDS: HEPARIN NA (PORCINE) 5,000 UNITS/ML 1ML VIAL SQ SCH ×3 (06:22→22:33)
--- NOTE | 2017-04-10 07:43 | PN ---
Physical Exam: SUBJECTIVE: Pt is POD 4 today. Reports bowel sounds in her stomach and some flatus since last night. Pt had NGT removed last night at that time. Pt's pain remains well controlled and has no other complaints. OBJECTIVE: Vital Signs Period Temp Pulse Resp BP Sys/Patterson Pulse Ox Last 24 Hr 98.1 F-99.5 F 74-91 18-20 132-138/74-81 95-98 GENERAL: NAD, Alert, Awake, resting in bed. HEENT: No JVD, EOMI, MARISABEL, no epistaxis from nares. LUNGS: CTA bilaterally, no wheezes, no crackles, no accessory muscle use. HEART: RRR, S1, S2 present. 2/6 diastolic murmur heard at LLS border. ABDOMEN: Soft, normoactive bowel sounds, bandage placed to midline from 2cm below umbilicus to 4.5cm above, site is C/D/I, nondistended EXTREMITIES: No edema. Pulses 2+ throughout SKIN: Warm, dry, no rashes or lesions noted. Laboratory Results - last 24 hr 04/09/17 09:30 Sodium 138 Potassium 3.2 L Chloride 99 Carbon Dioxide 33 H Anion Gap 6 L BUN 10 Creatinine 0.4 L Random Glucose 126 H D Calcium 7.9 L Active Medications Generic Name Dose Route Start Last Admin Trade Name Freq PRN Reason Stop Dose Admin Heparin Sodium (Porcine) 5,000 unit 04/06/17 14:00 04/10/17 06:22 Heparin - SQ 5,000 unit TID RAYMOND Administration Potassium Chloride/Dextrose/Sod Cl 20 meq in 1,000 mls @ 83 mls/hr 04/09/17 11 :15 04/09/17 12:04 D5-1/2ns+20 Meq Kcl - IV 04/10/17 23:18 83 mls/hr ASDIR RAYMOND Administration Metoprolol Tartrate 5 mg 04/07/17 17:33 Lopressor Injection - IVPB Q4H PRN HYPERTENSION Morphine Sulfate 1 mg 04/08/17 11:50 04/09/17 23:45 Morphine Sulfate IVPUSH 1 mg Q6H PRN Administration PAIN Ondansetron HCl 4 mg 04/06/17 19:00 Zofran Injection IVPUSH Q6H PRN NAUSEA AND/OR VOMITING ASSESSMENT/PLAN: 1) SBO --POD 4 today --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 Sofia following 2) HTN --Pt on lisinopril 5mg at home --can now continue --Monitor BP --Labetolol 5mg IVPB PRN d/c 3) Weight loss --CEA and CA19-9 WNL --TSH WNL FEN: Fluids: D5-1/2NS+20mEq @75cc/hr Electrolyte abnormalities: hypokalemia; KDur 40mEq given today Nutrition: Advance to clears and upgrade as tolerated PPX DVT - Heparin 5000U SQ TID/ SCDs applied both legs Dispo: Med-surg Case to be discussed with Dr. Harshal Naqvi, DO - Internal Medicine PGY-1 Visit type - Emergency Visit Emergency Visit: No - New Patient This patient is new to me today: No - Critical Care Critical Care patient: No
[2017-04-10 08:13] LABS: BLOOD UREA NITROGEN 7 mg/dL (7-18); CHLORIDE 98 mmol/L (98-107); POTASSIUM 3.3 mmol/L (3.5-5.1); SODIUM 138 mmol/L (136-145)
--- NOTE | 2017-04-10 08:15 | PN ---
Progress Note (short form) - Note Progress Note: POD #4 Alert. Sitting in chair at bedside. NGT clamped. Ambulating hallways unassisted and without difficulty. Voiding spontaneously. Denies n/v/f/c, CP, SOB. Her K was low yesterday so it was repleted. Last Vital Signs Temp Pulse Resp BP Pulse Ox 99.2 F 83 20 132/74 98 04/10/17 06:00 04/10/17 06:00 04/10/17 06:00 04/10/17 06:00 04/09/17 21:00 CBC 04/07/17 05:10 PE Gen: alert. nad. Abd: Soft. NT. ND. Midline pedro c/d/i. LE: Soft. NT. SCDs bilat Problem List - Problems (1) Small bowel obstruction Assessment/Plan: POD #4 s/p exploratory laparotomy w/ enterolysis NGT dc'd on rounds Aggressive mobilization f/u BMP to make sure potassium in range, replete elytes prn Once patient passes flatus, will begin clear liquid diet Code(s): K56.609 - UNSP INTESTNL OBST, UNSP TO PARTIAL VERSUS COMPLETE OBST
[2017-04-10 08:22] LABS: ANION GAP 7 (8-16); CALCIUM 8.6 mg/dL (8.5-10.1); CO2 33 mmol/L (21-32); CREATININE 0.4 mg/dL (0.55-1.02); GLUCOSE,RANDOM 124 mg/dL (74-106); MAGNESIUM 1.9 mg/dL (1.8-2.4); PHOSPHOROUS 2.9 mg/dL (2.5-4.9)
[2017-04-10] MEDS ORDERED: POTASSIUM CHLORIDE TABS 20 MEQ TABLET.ER (FP) PO ONE (08:44)
[2017-04-10] MEDS: D5-1/2NS+20 MEQ KCL - 20 MEQ/1,000 ML INFUS.BAG IV SCH ×2 (09:53→15:34)
--- NOTE | 2017-04-10 11:26 | PN ---
Progress Note (short form) - Note Progress Note: Attending Surgeon States she passed flatus; had some liquids Concur w/ a/p as outlined by JON Perera will cover 04/11 and 04/12. Dre Sofia MD FACS
[2017-04-10] MEDS ORDERED: LISINOPRIL 10 MG TABLET (FP) PO SCH (14:45)
--- NOTE | 2017-04-10 15:38 | PN ---
Teaching Attending Note Name of Resident: Mitchell Naqvi ATTENDING PHYSICIAN STATEMENT I saw and evaluated the patient. I reviewed the resident's note and discussed the case with the resident. I agree with the resident's findings and plan as documented. SUBJECTIVE: feels nasuea post full liquid diet, positive for Flatus. OBJECTIVE: Vital Signs Temperature 98.4 F 04/10/17 10:00 Pulse Rate 89 04/10/17 10:00 Respiratory Rate 18 04/10/17 10:00 Blood Pressure 122/72 04/10/17 10:00 O2 Sat by Pulse Oximetry (%) 98 04/09/17 21:00 CBCD WBC 9.9 K/mm3 (4.0-10.0) 04/07/17 05:10 RBC 4.22 M/mm3 (3.60-5.2) 04/07/17 05:10 Hgb 12.0 GM/dL (10.7-15.3) 04/07/17 05:10 Hct 35.6 % (32.4-45.2) 04/07/17 05:10 MCV 84.2 fl (80-96) 04/07/17 05:10 MCHC 33.8 g/dl (32.0-36.0) 04/07/17 05:10 RDW 14.8 % (11.6-15.6) 04/07/17 05:10 Plt Count 238 K/MM3 (134-434) 04/07/17 05:10 MPV 8.0 fl (7.5-11.1) 04/07/17 05:10 CMP Sodium 138 mmol/L (136-145) 04/10/17 06:00 Potassium 3.3 mmol/L (3.5-5.1) L 04/10/17 06:00 Chloride 98 mmol/L (98-107) 04/10/17 06:00 Carbon Dioxide 33 mmol/L (21-32) H 04/10/17 06:00 Anion Gap 7 (8-16) L 04/10/17 06:00 BUN 7 mg/dL (7-18) D 04/10/17 06:00 Creatinine 0.4 mg/dL (0.55-1.02) L 04/10/17 06:00 Creat Clearance w eGFR > 60 (>60) 04/04/17 05:10 Random Glucose 124 mg/dL (74-106) H 04/10/17 06:00 Calcium 8.6 mg/dL (8.5-10.1) 04/10/17 06:00 Total Bilirubin 0.6 mg/dL (0.2-1.0) D 04/04/17 05:10 AST 27 U/L (15-37) D 04/04/17 05:10 ALT 33 U/L (12-78) D 04/04/17 05:10 Alkaline Phosphatase 64 U/L (45-117) D 04/04/17 05:10 Total Protein 5.9 g/dl (6.4-8.2) L D 04/04/17 05:10 Albumin 3.2 g/dl (3.4-5.0) L D 04/04/17 05:10 Current Medications Generic Name Dose Route Start Last Admin Trade Name Freq PRN Reason Stop Dose Admin Heparin Sodium (Porcine) 5,000 unit 04/06/17 14:00 04/10/17 06:22 Heparin - SQ 5,000 unit TID RAYMOND Administration Potassium Chloride/Dextrose/Sod Cl 20 meq in 1,000 mls @ 83 mls/hr 04/09/17 11 :15 04/10/17 09:53 D5-1/2ns+20 Meq Kcl - IV 04/10/17 23:18 83 mls/hr ASDIR RAYMOND Administration Lisinopril 10 mg 04/11/17 10:00 Prinivil PO DAILY RAYMOND Morphine Sulfate 1 mg 04/08/17 11:50 04/09/17 23:45 Morphine Sulfate IVPUSH 1 mg Q6H PRN Administration PAIN Ondansetron HCl 4 mg 04/06/17 19:00 Zofran Injection IVPUSH Q6H PRN NAUSEA AND/OR VOMITING Home Medications Medication Instructions Recorded Lisinopril 10 mg PO DAILY 04/16/16 Omeprazole 20 mg PO DAILY 04/02/17 Rosuvastatin [Crestor -] 40 mg PO HS 04/02/17 Oxycodone HCl/Acetaminophen 1 tab PO Q6H PRN #20 tablet MDD 4 04/06/17 [Percocet 5-325 mg Tablet] PE: per resident's note. ASSESSMENT AND PLAN: 72 y/o lady with h/o HTN , HLP and weight loss who presented with abd pain and was found to have SBO # pod #4; SBO: s/p explaratory laparotomy with enterolysis. advanced diet to full liquid, had nausea post eating. # Acute Hypokalemia; IVF with 40Meq KCL # HTN: will place her back to her po meds. DVT Px: Heparin Sq possible dc in am, if tolerates the diet.
[2017-04-11] MEDS: HEPARIN NA (PORCINE) 5,000 UNITS/ML 1ML VIAL SQ SCH ×2 (07:02→21:29)
[2017-04-11 08:48] LABS: ANION GAP 11 (8-16); BLOOD UREA NITROGEN 5 mg/dL (7-18); CALCIUM 8.9 mg/dL (8.5-10.1); CHLORIDE 102 mmol/L (98-107); CO2 27 mmol/L (21-32); CREATININE 0.5 mg/dL (0.55-1.02); GLUCOSE,RANDOM 115 mg/dL (74-106); POTASSIUM 4.1 mmol/L (3.5-5.1); SODIUM 140 mmol/L (136-145)
[2017-04-11] MEDS: LISINOPRIL 10 MG TABLET (FP) PO SCH (09:56)
--- NOTE | 2017-04-11 10:34 | DS ---
Physical Exam: SUBJECTIVE: Patient seen and examined OBJECTIVE: Vital Signs Temperature 98.2 F 04/11/17 09:52 Pulse Rate 90 04/11/17 09:52 Respiratory Rate 20 04/11/17 09:52 Blood Pressure 135/80 04/11/17 09:52 O2 Sat by Pulse Oximetry (%) 99 04/10/17 21:00 PHYSICAL EXAM GENERAL: The patient is awake, alert, and fully oriented, in no acute distress. HEAD: Normal with no signs of trauma. EYES: PERRL, extraocular movements intact, sclera anicteric, conjunctiva clear. ENT: Ears normal, oropharynx clear without exudates, moist mucous membranes. NECK: Trachea midline, full range of motion, supple. LUNGS: Breath sounds equal, clear to auscultation bilaterally, no wheezes, no crackles, no accessory muscle use. HEART: Regular rate and rhythm, S1, S2 without murmur, rub or gallop. ABDOMEN: Soft, nontender, nondistended, normoactive bowel sounds, no guarding, no rebound, no hepatosplenomegaly, no masses. EXTREMITIES: 2+ pulses, warm, well-perfused, no edema. NEUROLOGICAL: Cranial nerves II through XII grossly intact. Normal speech, gait not observed. PSYCH: Normal mood, normal affect. SKIN: Warm, dry, normal turgor, no rashes or lesions noted. LABS CBCD WBC 9.9 K/mm3 (4.0-10.0) 04/07/17 05:10 RBC 4.22 M/mm3 (3.60-5.2) 04/07/17 05:10 Hgb 12.0 GM/dL (10.7-15.3) 04/07/17 05:10 Hct 35.6 % (32.4-45.2) 04/07/17 05:10 MCV 84.2 fl (80-96) 04/07/17 05:10 MCHC 33.8 g/dl (32.0-36.0) 04/07/17 05:10 RDW 14.8 % (11.6-15.6) 04/07/17 05:10 Plt Count 238 K/MM3 (134-434) 04/07/17 05:10 MPV 8.0 fl (7.5-11.1) 04/07/17 05:10 CMP Sodium 140 mmol/L (136-145) 04/11/17 06:00 Potassium 4.1 mmol/L (3.5-5.1) D 04/11/17 06:00 Chloride 102 mmol/L (98-107) 04/11/17 06:00 Carbon Dioxide 27 mmol/L (21-32) 04/11/17 06:00 Anion Gap 11 (8-16) 04/11/17 06:00 BUN 5 mg/dL (7-18) L D 04/11/17 06:00 Creatinine 0.5 mg/dL (0.55-1.02) L D 04/11/17 06:00 Creat Clearance w eGFR > 60 (>60) 04/04/17 05:10 Random Glucose 115 mg/dL (74-106) H 04/11/17 06:00 Calcium 8.9 mg/dL (8.5-10.1) 04/11/17 06:00 Total Bilirubin 0.6 mg/dL (0.2-1.0) D 04/04/17 05:10 AST 27 U/L (15-37) D 04/04/17 05:10 ALT 33 U/L (12-78) D 04/04/17 05:10 Alkaline Phosphatase 64 U/L (45-117) D 04/04/17 05:10 Total Protein 5.9 g/dl (6.4-8.2) L D 04/04/17 05:10 Albumin 3.2 g/dl (3.4-5.0) L D 04/04/17 05:10 Home Medication List Medication Instructions Recorded Confirmed Type Lisinopril 10 mg PO DAILY 04/16/16 04/02/17 History Omeprazole 20 mg PO DAILY 04/02/17 04/02/17 History Rosuvastatin [Crestor -] 40 mg PO HS 04/02/17 04/02/17 History Active Medications Generic Name Dose Route Start Last Admin Trade Name Curtisq PRN Reason Stop Dose Admin Heparin Sodium (Porcine) 5,000 unit 04/06/17 14:00 04/11/17 07:02 Heparin - SQ 5,000 unit TID RAYMOND Administration Lisinopril 10 mg 04/11/17 10:00 04/11/17 09:56 Prinivil PO 10 mg DAILY RAYMOND Administration Morphine Sulfate 1 mg 04/08/17 11:50 04/09/17 23:45 Morphine Sulfate IVPUSH 1 mg Q6H PRN Administration PAIN Ondansetron HCl 4 mg 04/06/17 19:00 Zofran Injection IVPUSH Q6H PRN NAUSEA AND/OR VOMITING HOSPITAL COURSE: Date of Admission:04/02/17 Date of Discharge: 04/11/17 72 y/o lady with h/o HTN , HLP and weight loss who presented with abd pain and was found to have SBO # pod #4; SBO: s/p explaratory laparotomy with enterolysis. advanced diet to full liquid, had nausea post eating. #Severe protein calorie malnutrition with BMI of 19Kg will start her on low sodium soft diet, low salt and fat. # Acute Hypokalemia; IVF with 40Meq KCL # HTN: will place her back to her po meds. DVT Px: Heparin Sq Discharge Summary Reason For Visit: SMALL BOWEL OBSTRUCTION Current Active Problems Ileitis, terminal (Acute) Small bowel obstruction (Acute) Condition: Stable - Instructions Diet, Activity, Other Instructions: Dr. Sofia's Discharge Instructions Dear FELI, Post Operative Instructions Physical activity Resume your normal everyday activity as tolerated no heavy lifting or exercise until seen by your surgeon. You may walk unlimited amounts of and climb stairs. You may resume driving the car when you feel safe and comfortable behind the wheel. Wound care If you have a bandage, leave it on, and keep dry for 48 - 72 hours. After that time discard the outer bandage. If there are tapes on the skin under the outer bandage, leave them in place. They will peel off in the next 7 to 10 days. Do Not peel them off. You may shower 2 days after surgery. If there are tapes present on the skin, they can get wet. Diet There are no dietary restrictions. Eat healthy, high-fiber foods. Drink 6 to 8 glasses of liquid each day. This will assist in keeping your bowels are regular. Pain management You may take Tylenol or acetaminophen or Ibuprofen (for example, Motrin, Advil etc.) Any pain prescription medication ordered should be taken as prescribed for moderate to severe pain. Call Dr. Sofia for any of the following: Severe pain not relieved by medication Fever of 101 or higher Excessive bleeding or drainage on dressing Inability to urinate Call the office at [phone] for a post operative appointment in 7 - 10 days. Disposition: HOME - Home Medications Comprehensive Discharge Medication List: Ambulatory Orders Lisinopril 10 mg PO DAILY 04/16/16 Omeprazole 20 mg PO DAILY 04/02/17 Rosuvastatin [Crestor -] 40 mg PO HS 04/02/17 Oxycodone HCl/Acetaminophen [Percocet 5-325 mg Tablet] 1 tab PO Q6H PRN #20 tablet MDD 4 04/06/17
[2017-04-11] MEDS ORDERED: RANITIDINE HCL 150 MG TABLET (FP) PO SCH (10:45)
--- NOTE | 2017-04-11 11:01 | PN ---
Progress Note, Physician History of Present Illness: covering for Dr. Sofia, on this 72 yr old female s/p ex/lap for closed loop SBO Feeling better , reports flatus but no BM< Co's of epigastric burning - Current Medication List Current Medications: Active Medications Heparin Sodium (Porcine) (Heparin -) 5,000 unit SQ BID [facility] Lisinopril (Prinivil) 10 mg PO DAILY [facility] Last Admin: 04/11/17 09:56 Dose: 10 mg Ranitidine HCl (Zantac -) 150 mg PO BID [facility] - Objective Vital Signs: Vital Signs Temperature 98.2 F 04/11/17 09:52 Pulse Rate 90 04/11/17 09:52 Respiratory Rate 20 04/11/17 09:52 Blood Pressure 135/80 04/11/17 09:52 O2 Sat by Pulse Oximetry (%) 99 04/10/17 21:00 Labs: CBC, BMP 04/07/17 05:10 04/11/17 06:00 INR, PTT INR 0.98 (0.82-1.09) 04/03/17 05:19 Problem List - Problems (1) Small bowel obstruction Code(s): K56.609 - UNSP INTESTNL OBST, UNSP TO PARTIAL VERSUS COMPLETE OBST Assessment/Plan continue clears consider changing zantac to a PPI
[2017-04-11] MEDS ORDERED: DOCUSATE SODIUM 100 MG CAPSULE (FP) PO SCH ×2 (15:30→22:00)
[2017-04-11] MEDS: PANTOPRAZOLE 40 MG TABLET (FP) PO SCH (16:04)
--- NOTE | 2017-04-11 17:08 | PN ---
Progress Note (short form) - Note Progress Note: Discussed with the patient , Patient normally does not like to eat , eats very little, also c/o some abdominal reflus, but no nausea or vomiting. having Flatus but no BMs yet. Vital: Vital Signs Temperature 97.9 F 04/11/17 15:38 Pulse Rate 76 04/11/17 15:38 Respiratory Rate 18 04/11/17 15:38 Blood Pressure 114/72 04/11/17 15:38 O2 Sat by Pulse Oximetry (%) 99 04/11/17 09:00 GENERAL: The patient is awake, alert, and fully oriented, in no acute distress. HEAD: Normal with no signs of trauma. EYES: PERRL, extraocular movements intact, sclera anicteric, conjunctiva clear. ENT: Ears normal, oropharynx clear without exudates, moist mucous membranes. NECK: Trachea midline, full range of motion, supple. LUNGS: Breath sounds equal, clear to auscultation bilaterally, no wheezes, no crackles, no accessory muscle use. HEART: Regular rate and rhythm, S1, S2 without murmur, rub or gallop. ABDOMEN: Soft, Incision site positive for pedro, no erythema, clean wound. no guarding, no rebound, no hepatosplenomegaly, no masses. EXTREMITIES: 2+ pulses, warm, well-perfused, no edema. NEUROLOGICAL: Cranial nerves II through XII grossly intact. Normal speech, gait is stable PSYCH: Normal mood, normal affect. SKIN: Warm, dry, normal turgor, no rashes or lesions noted. LABS CBCD WBC 9.9 K/mm3 (4.0-10.0) 04/07/17 05:10 RBC 4.22 M/mm3 (3.60-5.2) 04/07/17 05:10 Hgb 12.0 GM/dL (10.7-15.3) 04/07/17 05:10 Hct 35.6 % (32.4-45.2) 04/07/17 05:10 MCV 84.2 fl (80-96) 04/07/17 05:10 MCHC 33.8 g/dl (32.0-36.0) 04/07/17 05:10 RDW 14.8 % (11.6-15.6) 04/07/17 05:10 Plt Count 238 K/MM3 (134-434) 04/07/17 05:10 MPV 8.0 fl (7.5-11.1) 04/07/17 05:10 CMP Sodium 140 mmol/L (136-145) 04/11/17 06:00 Potassium 4.1 mmol/L (3.5-5.1) D 04/11/17 06:00 Chloride 102 mmol/L (98-107) 04/11/17 06:00 Carbon Dioxide 27 mmol/L (21-32) 04/11/17 06:00 Anion Gap 11 (8-16) 04/11/17 06:00 BUN 5 mg/dL (7-18) L D 04/11/17 06:00 Creatinine 0.5 mg/dL (0.55-1.02) L D 04/11/17 06:00 Creat Clearance w eGFR > 60 (>60) 04/04/17 05:10 Random Glucose 115 mg/dL (74-106) H 04/11/17 06:00 Calcium 8.9 mg/dL (8.5-10.1) 04/11/17 06:00 Total Bilirubin 0.6 mg/dL (0.2-1.0) D 04/04/17 05:10 AST 27 U/L (15-37) D 04/04/17 05:10 ALT 33 U/L (12-78) D 04/04/17 05:10 Alkaline Phosphatase 64 U/L (45-117) D 04/04/17 05:10 Total Protein 5.9 g/dl (6.4-8.2) L D 04/04/17 05:10 Albumin 3.2 g/dl (3.4-5.0) L D 04/04/17 05:10 Home Medication List Medication Instructions Recorded Confirmed Type Lisinopril 10 mg PO DAILY 04/16/16 04/02/17 History Omeprazole 20 mg PO DAILY 04/02/17 04/02/17 History Rosuvastatin [Crestor -] 40 mg PO HS 04/02/17 04/02/17 History Active Medications Generic Name Dose Route Start Last Admin Trade Name Freq PRN Reason Stop Dose Admin Heparin Sodium (Porcine) 5,000 unit 04/06/17 14:00 04/11/17 07:02 Heparin - SQ 5,000 unit TID RAYMOND Administration Lisinopril 10 mg 04/11/17 10:00 04/11/17 09:56 Prinivil PO 10 mg DAILY RAYMOND Administration Morphine Sulfate 1 mg 04/08/17 11:50 04/09/17 23:45 Morphine Sulfate IVPUSH 1 mg Q6H PRN Administration PAIN Ondansetron HCl 4 mg 04/06/17 19:00 Zofran Injection IVPUSH Q6H PRN NAUSEA AND/OR VOMITING A/P: 72 y/o lady with h/o HTN , HLP and weight loss who presented with abd pain and was found to have SBO # pod #5; SBO: s/p explaratory laparotomy with enterolysis. advanced diet to soft diet, with ensure, added Protonix, discussed with Dr.tuxiro marcos ROBIN for , can't be discharged without having BMs. added stool softener 300mg po hs. #Severe protein calorie malnutrition with BMI of 19Kg will start her on low sodium soft diet, low salt and fat. Added Ensure tid to her diet. # Acute Hypokalemia; resolved # HTN: will place her back to her po meds. DVT Px: Heparin Sq Visit type - Emergency Visit Emergency Visit: Yes ED Registration Date: 04/02/17 Care time: The patient presented to the Emergency Department on the above date and was hospitalized for further evaluation of their emergent condition. - New Patient This patient is new to me today: No - Critical Care Critical Care patient: No
[2017-04-11] MEDS ORDERED: DOCUSATE SODIUM 100 MG CAPSULE (FP) PO ONE (17:16)
--- NOTE | 2017-04-12 08:54 | PN ---
Physical Exam: SUBJECTIVE: No acute events overnight. Pt reports small BM that was formed without blood. Pt reports still having a lack of appetite, but is tolerating her chopped diet. Denies abdominal pain, nausea, and vomiting. OBJECTIVE: Vital Signs Period Temp Pulse Resp BP Sys/Patterson Pulse Ox Last 24 Hr 97.9 F-98.5 F 61-90 18-20 107-135/56-80 99 GENERAL: NAD, Alert, Awake, resting in bed. HEENT: No JVD, EOMI, MARISABEL, no epistaxis from nares. LUNGS: CTA bilaterally, no wheezes, no crackles, no accessory muscle use. HEART: RRR, S1, S2 present. 2/6 diastolic murmur heard at LLS border. ABDOMEN: Soft, normoactive bowel sounds, incision site is C/D/I, nondistended EXTREMITIES: No edema. Pulses 2+ throughout SKIN: Warm, dry, no rashes or lesions noted. Laboratory Results - last 24 hr 04/11/17 06:00 Sodium 140 Potassium 4.1 D Chloride 102 Carbon Dioxide 27 Anion Gap 11 BUN 5 L D Creatinine 0.5 L D Random Glucose 115 H Calcium 8.9 Active Medications Generic Name Dose Route Start Last Admin Trade Name Freq PRN Reason Stop Dose Admin Docusate Sodium 300 mg 04/11/17 22:00 04/11/17 21:28 Colace - PO 300 mg HS RAYMOND Administration Heparin Sodium (Porcine) 5,000 unit 04/11/17 22:00 04/11/17 21:29 Heparin - SQ 5,000 unit BID RAYMOND Administration Lisinopril 10 mg 04/11/17 10:00 04/11/17 09:56 Prinivil PO 10 mg DAILY RAYMOND Administration Pantoprazole Sodium 40 mg 04/11/17 15:30 04/11/17 16:04 Protonix - PO 40 mg DAILY RAYMOND Administration ASSESSMENT/PLAN: 1) SBO --POD 6 today --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 Sofia as an outpatient --CEA, CA19-9 WNL (25.8 and 8 respectively) --Zofran 4mg PRN nausea (Qtc normal) --Dr. Sofia following 2) HTN --Continue lisinopril 5mg --Monitor BP 3) Weight loss --CEA and CA19-9 WNL --TSH WNL 4) Severe protein calorie malnutrition --BMI of 19Kg --Ebsure TID with food FEN: Fluids: No fluids currently; tolerating PO Electrolyte abnormalities: Hypokalemia resolved Nutrition: Currently chopped; will advance as tolerated PPX DVT - Heparin 5000U SQ TID Dispo: D/C planning Case to be discussed with Dr. Harshal Naqvi, DO - Internal Medicine PGY-1 Visit type - Emergency Visit Emergency Visit: No - New Patient This patient is new to me today: No - Critical Care Critical Care patient: No
[2017-04-12] MEDS: LISINOPRIL 10 MG TABLET (FP) PO SCH (09:42)
[2017-04-12] MEDS: PANTOPRAZOLE 40 MG TABLET (FP) PO SCH (09:42)
[2017-04-12] MEDS: HEPARIN NA (PORCINE) 5,000 UNITS/ML 1ML VIAL SQ SCH (09:42)
--- NOTE | 2017-04-12 10:19 | PN ---
Teaching Attending Note Name of Resident: Mitchell Naqvi ATTENDING PHYSICIAN STATEMENT I saw and evaluated the patient. I reviewed the resident's note and discussed the case with the resident. I agree with the resident's findings and plan as documented. SUBJECTIVE: Patient is doing well, no further stomach pain, had a BM this morning, No nausea or vomiting. No fever or chills. OBJECTIVE: Vital Signs Temperature 98.0 F 04/12/17 09:25 Pulse Rate 80 04/12/17 09:25 Respiratory Rate 20 04/12/17 09:25 Blood Pressure 105/59 04/12/17 09:25 O2 Sat by Pulse Oximetry (%) 99 04/11/17 09:00 CBCD WBC 9.9 K/mm3 (4.0-10.0) 04/07/17 05:10 RBC 4.22 M/mm3 (3.60-5.2) 04/07/17 05:10 Hgb 12.0 GM/dL (10.7-15.3) 04/07/17 05:10 Hct 35.6 % (32.4-45.2) 04/07/17 05:10 MCV 84.2 fl (80-96) 04/07/17 05:10 MCHC 33.8 g/dl (32.0-36.0) 04/07/17 05:10 RDW 14.8 % (11.6-15.6) 04/07/17 05:10 Plt Count 238 K/MM3 (134-434) 04/07/17 05:10 MPV 8.0 fl (7.5-11.1) 04/07/17 05:10 CMP Sodium 140 mmol/L (136-145) 04/11/17 06:00 Potassium 4.1 mmol/L (3.5-5.1) D 04/11/17 06:00 Chloride 102 mmol/L (98-107) 04/11/17 06:00 Carbon Dioxide 27 mmol/L (21-32) 04/11/17 06:00 Anion Gap 11 (8-16) 04/11/17 06:00 BUN 5 mg/dL (7-18) L D 04/11/17 06:00 Creatinine 0.5 mg/dL (0.55-1.02) L D 04/11/17 06:00 Creat Clearance w eGFR > 60 (>60) 04/04/17 05:10 Random Glucose 115 mg/dL (74-106) H 04/11/17 06:00 Calcium 8.9 mg/dL (8.5-10.1) 04/11/17 06:00 Total Bilirubin 0.6 mg/dL (0.2-1.0) D 04/04/17 05:10 AST 27 U/L (15-37) D 04/04/17 05:10 ALT 33 U/L (12-78) D 04/04/17 05:10 Alkaline Phosphatase 64 U/L (45-117) D 04/04/17 05:10 Total Protein 5.9 g/dl (6.4-8.2) L D 04/04/17 05:10 Albumin 3.2 g/dl (3.4-5.0) L D 04/04/17 05:10 Current Medications Generic Name Dose Route Start Last Admin Trade Name Freq PRN Reason Stop Dose Admin Docusate Sodium 300 mg 04/11/17 22:00 04/11/17 21:28 Colace - PO 300 mg HS RAYMOND Administration Heparin Sodium (Porcine) 5,000 unit 04/11/17 22:00 04/12/17 09:42 Heparin - SQ 5,000 unit BID RAYMOND Administration Lisinopril 10 mg 04/11/17 10:00 04/12/17 09:42 Prinivil PO 10 mg DAILY RAYMOND Administration Pantoprazole Sodium 40 mg 04/11/17 15:30 04/12/17 09:42 Protonix - PO 40 mg DAILY RAYMOND Administration PE: per resident's note ASSESSMENT AND PLAN: 72 y/o lady with h/o HTN , HLP and weight loss who presented with abd pain and was found to have SBO # pod #6 ; SBO: s/p explaratory laparotomy with enterolysis. Able to tolerate the diet, has good appetite , patient stated, had a bowel movement. Will continue stool softener 300mg po qhs, added ensure tid ,added Protonix to her discharge for one month. As per discussion with , can be discharged after having a bowel movement . #Severe protein calorie malnutrition with BMI of 19Kg will start her on low sodium soft diet, low salt and fat. Added Ensure tid to her diet. # Acute Hypokalemia; resolved Home Medications Medication Instructions Recorded Lisinopril 10 mg PO DAILY 04/16/16 Rosuvastatin [Crestor -] 40 mg PO HS 04/02/17 Docusate Sodium [Colace -] 300 mg PO HS #30 capsule 04/12/17 Lactose-Reduced Food [Ensure Clear] 296 ml PO AC #42 bottle 04/12/17 Pantoprazole Sodium [Protonix] 40 mg PO DAILY #30 tablet. 04/12/17 will discharge the patient.
--- NOTE | 2017-04-12 10:33 | DS ---
Physical Exam: SUBJECTIVE: No acute events overnight. Pt reports having a small soft formed BM without any blood. Pt reports increase in appetite and is tolerating her diet currently. Denies nausea, vomiting, and abdominal. No other complaints. OBJECTIVE: Vital Signs Period Temp Pulse Resp BP Sys/Patterson Pulse Ox Last 24 Hr 97.9 F-98.5 F 61-82 18-20 105-114/56-72 PHYSICAL EXAM GENERAL: NAD, Alert, Awake, resting in bed. HEENT: No JVD, EOMI, MARISABEL, no epistaxis from nares. LUNGS: CTA bilaterally, no wheezes, no crackles, no accessory muscle use. HEART: RRR, S1, S2 present. 2/6 diastolic murmur heard at LLS border. ABDOMEN: Soft, normoactive bowel sounds, incision site is C/D/I, nondistended EXTREMITIES: No edema. Pulses 2+ throughout SKIN: Warm, dry, no rashes or lesions noted. LABS HOSPITAL COURSE: Date of Admission:04/02/17 Date of Discharge: 04/12/17 Pt was admitted on 04/02/17 due to severe abdominal pain, nausea, and multiple episodes of dark emesis. Pt was found to have SBO via abdominal CT scan w/o contrast and was originally managed medically by NPO, NGT placement, and pain control. Pt was not improving over the course of a couple of days indicated by unresolved air-fluid levels on KUB, and the decision to perform exploratory laparotomy was made. Intra-operatively pt was found to have internal hernia which was surgically reduced with preservation of entire bowel. Pt's symptoms were improved and post-op ileus was ruled out via KUB. Pt is being discharged in stable condition currently having flatus, BM's, and tolerating diet. Colace 300mg, Protonix 40mg, and Ensure has been forwarded to pt's pharmacy; patient aware. Pt reports no pain and thus pain medication was not given on an outpatient basis Dr. Sofia in agreement with discharge and pt will need to follow-up with him on an outpatient basis; pt aware. Minutes to complete discharge: 36 Discharge Summary Reason For Visit: SMALL BOWEL OBSTRUCTION Current Active Problems Ileitis, terminal (Acute) Small bowel obstruction (Acute) Condition: Stable - Instructions Diet, Activity, Other Instructions: Medications: --You will be given Colace 300mg to take ONCE at night; this is a stool softener to help with your bowel movements --You will be given Protonix 40mg to take ONCE per day to help with your reflux --These were sent to your pharmacy, [facility]. Sofia's Discharge Instructions Dear FELI, Post Operative Instructions Physical activity Resume your normal everyday activity as tolerated no heavy lifting or exercise until seen by your surgeon. You may walk unlimited amounts of and climb stairs. You may resume driving the car when you feel safe and comfortable behind the wheel. Wound care If you have a bandage, leave it on, and keep dry for 48 - 72 hours. After that time discard the outer bandage. If there are tapes on the skin under the outer bandage, leave them in place. They will peel off in the next 7 to 10 days. Do Not peel them off. You may shower 2 days after surgery. If there are tapes present on the skin, they can get wet. Diet There are no dietary restrictions. Eat healthy, high-fiber foods. Drink 6 to 8 glasses of liquid each day. This will assist in keeping your bowels are regular. Pain management You may take Tylenol or acetaminophen for pain. Call Dr. Sofia for any of the following: Severe pain not relieved by medication Fever of 101 or higher Excessive bleeding or drainage on dressing Inability to urinate Call the office at [phone] for a post operative appointment in 7 - 10 days. Referrals: Dre Sofia MD [Staff Physician] - 1 Week Disposition: HOME - Home Medications Comprehensive Discharge Medication List: Ambulatory Orders Lisinopril 10 mg PO DAILY 04/16/16 Omeprazole 20 mg PO DAILY 04/02/17 Rosuvastatin [Crestor -] 40 mg PO HS 04/02/17 Oxycodone HCl/Acetaminophen [Percocet 5-325 mg Tablet] 1 tab PO Q6H PRN #20 tablet MDD 4 04/06/17 Docusate Sodium [Colace -] 300 mg PO HS #30 capsule 04/12/17 Lactose-Reduced Food [Ensure Clear] 296 ml PO AC #42 bottle 04/12/17 Pantoprazole Sodium [Protonix] 40 mg PO DAILY #30 tablet. 04/12/17 This patient is new to me today: No Emergency Visit: No Critical Care patient: No - Discharge Referral Referred to [facility] No
[2017-04-12 15:27] VITALS: BP 112/54; PULSE 82; TEMP 98.1
== END 2017-04-12 16:45 | disposition home or self-care (01) | DRG 335 ==
LOC: JER 10:50 → JERBED 11:50 → J4W 18:01 → J8W 04-07 09:04
PROVIDERS: ADMIT Internal Medicine; ATTEND Internal Medicine
PROC: 0D9670Z Drainage of Stomach with Drainage Device, Via Natural or Artificial Opening (ICD-10-PCS; 2017-04-02)
PROC: 0WJG0ZZ Inspection of Peritoneal Cavity, Open Approach (ICD-10-PCS; 2017-04-06)
PROC: 0DN80ZZ Release Small Intestine, Open Approach (ICD-10-PCS; principal; 2017-04-06 11:00)
DX: K56.50 Intestinal adhesions [bands], unspecified as to partial versus complete obstruction (principal); E43 Unspecified severe protein-calorie malnutrition; Z68.1 Body mass index [BMI] 19.9 or less, adult; E87.6 Hypokalemia; I10 Essential (primary) hypertension; E78.5 Hyperlipidemia, unspecified
CPT/HCPCS: 36415; 71020-TC; 74000-TC; 74020-TC; 74176-TC; 80048; 80053; 81003; 81015; 82378; 83036; 83605; 83690; 83735; 84100; 84132; 84443; 85025; 85027; 85610; 85730; 86301; 86304; 86850; 86900; 86901; 87040; 87086; 93005; 93010; 93306-TC; 94760; 97116-GP; 99283-25; 99285-25; J1644

== ENCOUNTER → 2018-09-14 | Day surgery (SDC) | payer OTHER ==
--- NOTE | 2018-09-15 17:39 | PATH ---
Cytology Non-Gynecological Report Patient Name: FELI BERMUDEZ [facility]. Rec. #: [id number] /Age/Gender: 1945 (Age: 73) / F Account: [id number] Location: RADIOLOGY INTER Taken: 09/14/2018 Received: 09/14/2018 Reported: 09/15/2018 Physicians: Leanne Linares M.D. Specimen(s) Received THYROID RIGHT LOBE Clinical History Right thyroid nodule, 2.24 x 1.53 x 1.65 cm Final Diagnosis THYROID, RIGHT, FINE NEEDLE ASPIRATION: UNSATISFACTORY FOR EVALUATION. BETHESDA CLASS I: NON-DIAGNOSTIC. RARE FOLLICULAR CELLS, RARE MACROPHAGES, AND SCANT COLLOID PRESENT. Comment: The specimen has insufficient follicular cell clusters and/or colloid; and suboptimal for complete cytopathologic evaluation according to [employer] [facility] for Reporting Thyroid FNA. If the nodule has worrisome ultrasound imaging properties, suggest repeat FNA, as warranted. Electronically Signed Starr Herrmann M.D. Gross Description Received are eight direct smears, four of which are air-dried and Diff-Quik stained, and four of which are alcohol fixed and Pap stained. Also received is 20 ml of bloody formalin from which one cellblock is prepared.
== END | disposition home or self-care (01) ==
LOC: JRADIR 08:52
PROVIDERS: ATTEND Internal Medicine
PROC: 0G9H3ZX Drainage of Right Thyroid Gland Lobe, Percutaneous Approach, Diagnostic (ICD-10-PCS; principal; 2018-09-14)
PROC: BG44ZZZ Ultrasonography of Thyroid Gland (ICD-10-PCS; 2018-09-14)
DX: E04.1 Nontoxic single thyroid nodule (principal)
CPT/HCPCS: 10005; 76942; 88173; 88305-TC